=== PATIENT | female | born 1970 | race Hispanic/Latino ===

== ENCOUNTER 2017-01-06 09:07 | Emergency (ER) | payer OTHER ==
[~2017-01-06] VITALS: Ht 165.1 cm; Wt 121.1 kg
[~2017-01-06 09:07] MED LIST: ASPIRIN EC81 M1 PO; FIORICET 50-301 EACH PO; GLUCOPHAGE1000 M1 PO; LYRICA50 M1 PO; MEDROL4 M2 PO; NORVASC10 M1 PO; PROAIR HFA8.5 GM INH; ZITHROMAX250 M2 PO
[2017-01-06 09:51] LABS: ABSOLUTE BASOPHIL COUNT 0 /CUMM (0.0-0.2); ABSOLUTE EOSINOPHIL COUNT 0.1 /CUMM (0.0-0.7); ABSOLUTE GRANULOCYTE CT 5.6 /CUMM (1.4-6.5); ABSOLUTE LYMPH COUNT 1.4 /CUMM (1.2-3.4); ABSOLUTE MONOCYTE COUNT 0.6 /CUMM (0.10-0.60); BASOPHIL % 0.3 % (0.0-2.0); EOSINOPHIL % 1.6 % (0-5); GRANULOCYTE % 71.8 % (42.2-75.2); HEMATOCRIT 45.1 % (37-47); MEAN CORPUSCULAR HGB 29.9 PG (27.0-31.0); MEAN CORPUSCULAR HGB CONC 33.1 G/DL (33.0-37.0); MEAN CORPUSCULAR VOLUME 90.2 FL (81.0-99.0); MEAN PLATELET VOLUME 8.6 FL (7.4-10.4); PLATELET COUNT 276 /CUMM (130-400); RBC DISTRIBUTION WIDTH 12.9 % (11.5-14.5); WHITE BLOOD CELL COUNT 7.8 /CUMM (4.8-10.8)
[2017-01-06] MEDS ORDERED: BENTYL10 M1 PO ×2 (10:53→11:24)
[2017-01-06] MEDS ORDERED: ZOFRAN ODT4 M1 SL ×2 (10:54→11:24)
--- NOTE | 2017-01-06 10:54 | ED GI/GU/ABDOMINAL COMPLAINT ---
History of Present Illness General Chief Complaint: General Adult Stated Complaint: DIARRHEA, 3 DAYS Source: patient Exam Limitations: no limitations Vital Signs & Intake/Output Vital Signs & Intake/Output Vital Signs Date Time Temp Pulse Resp B/P B/P Pulse O2 O2 Flow FiO2 Mean Ox Delivery Rate 01/06 1130 97.0 90 20 150/80 99 Room Air 01/06 0912 96.6 96 16 173/79 99 Room Air Allergies Coded Allergies: No Known Allergies (06/07/16) Reconcile Medications Albuterol Sulfate (Proair Hfa) 8.5 GM HFA.AER.AD 2-4 PUF INH Q4-6 PRN PRN shortness of breath Amlodipine Besylate (Norvasc) 10 MG TABLET 1 TAB PO DAILY BP (Reported) Ciprofloxacin HCl (Cipro) 500 MG TABLET 1 TAB PO BID uti Dicyclomine Hydrochloride (Bentyl) 10 MG CAPSULE 1-2 CAP PO TID abd pain Ergocalciferol (Vitamin D2) (Vitamin D2) 50,000 UNIT CAPSULE 1 CAP PO QTUES VITAMIN SUPPORT (Reported) Gabapentin 300 MG CAPSULE 1 CAP PO QPM SLEEP (Reported) Lisinopril/Hydrochlorothiazide (Lisinopril-Hctz 20-12.5 MG Tab) 20 MG-12.5 MG TABLET 1 TAB PO DAILY HEART (Reported) Metformin HCl (Glucophage) 1,000 MG TABLET 1 TAB PO BID DIABETES (Reported) Ondansetron (Zofran Odt) 4 MG TAB.RAPDIS 1 TAB SL TID nausea Triage Note: 46 Y/O FEMALE C/O DIARRHEA X 3 DAYS; ALSO C/O DECREASED URINATION. DENIES N/V. REPORTS STOMACH "CRAMPING". AFEBRILE. Triage Nurses Notes Reviewed? yes ? n Is pt currently ? No Onset: Abrupt Duration: day(s):, constant, continues in ED Timing: recent history No Modifying Factors: none HPI: 46-year-old female comes into emergency room for further evaluation of diarrhea for the past couple days. Patient reports that she's had multiple bouts of loose stool. Denies any fever. Some subjective body aches. Denies any abdominal pain. Denies any blood in her stool. Denies any other associated symptoms. Nothing seems to make her symptoms better or worse. Past History Travel History Traveled to [place] past 21 day No Medical History Any Pertinent Medical History? 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 No Review of Systems Review of Systems Constitutional: Reports: no symptoms. EENTM: Reports: no symptoms. Respiratory: Reports: no symptoms. Cardiovascular: Reports: no symptoms. GI: Reports: see HPI. Genitourinary: Reports: no symptoms. Musculoskeletal: Reports: no symptoms. Skin: Reports: no symptoms. Neurological/Psychological: Reports: no symptoms. Hematologic/Endocrine: Reports: no symptoms. Immunologic/Allergic: Reports: no symptoms. All Other Systems: Reviewed and Negative Physical Exam Physical Exam General Appearance: well developed/nourished, no apparent distress, alert Head: atraumatic, normal appearance Eyes: Bilateral: normal appearance, EOMI. Ears, Nose, Throat, Mouth: hearing grossly normal, moist mucous membrane Neck: normal inspection, full range of motion Respiratory: normal breath sounds, no respiratory distress Cardiovascular: regular rate/rhythm Gastrointestinal: soft, tenderness (mild) Back: normal inspection Extremities: normal range of motion Neurologic/Psych: awake, alert, oriented x 3, normal gait, normal mood/affect Skin: intact, normal color Core Measures ACS in differential dx? No Severe Sepsis Present: No Septic Shock Present: No Progress Differential Diagnosis: appendicitis, biliary colic, bowel obstruction, colon cancer, cholecystitis, diverticulitis, gastritis, hepatitis, ovarian cyst, ovarian torsion, pancreatitis, PID/cervicitis, peptic ulcer, PUD/GERD, perforated viscous, SBO, threatened AB, UTI/pyelo Plan of Care: Orders Procedure Date/time Status Add-on Test (ER Only) 01/06 1216 Active Add-on Test (ER Only) 01/06 1120 Active CULTURE,URINE 01/06 1100 Active URINE 01/06 1100 Complete LACTIC ACID 01/06 0935 Complete COMPREHENSIVE METABOLIC PANEL 01/06 0935 Complete CBC WITHOUT DIFFERENTIAL 01/06 0935 Complete URINALYSIS 01/06 0912 Complete Laboratory Tests 01/06/17 1235: Lactic Acid Cancelled 01/06/17 1100: Urine Color YEL, Urine Clarity CLEAR, Urine pH 6.0, Ur Specific [place] 1.020, Urine Protein 100 H, Urine Ketones NEG, Urine Nitrite POS H, Urine Bilirubin NEG, Urine Urobilinogen 0.2, Ur Leukocyte Esterase NEG, Ur Microscopic SEDIMENT EXAMINED, Urine RBC 1-3, Urine WBC 10-15 H, Ur Epithelial Cells FEW, Urine Bacteria PACKD H, Urine Hemoglobin SMALL H, Urine Glucose >=1000 H, Urine Test NEGATIVE 01/06/17 0940: Anion Gap 11, Estimated GFR > 60, BUN/Creatinine Ratio 13.8, Glucose 302 H, Lactic Acid 1.2, Calcium 8.6, Total Bilirubin 0.6, AST 14, ALT 24, Alkaline Phosphatase 89, Total Protein 6.7, Albumin 3.3 L, Globulin 3.4, Albumin/ Globulin Ratio 1.0 L, CBC w Diff NO MAN DIFF REQ, RBC 5.00, MCV 90.2, MCH 29.9, RDW 12.9, MPV 8.6, Gran % 71.8, Lymphocytes % 18.4 L, Monocytes % 7.9, Eosinophils % 1.6, Basophils % 0.3, Absolute Granulocytes 5.6, Absolute Lymphocytes 1.4, Absolute Monocytes 0.6, Absolute Eosinophils 0.1, Absolute Basophils 0, PUBS MCHC 33.1 Microbiology 01/06 1100 URINE ROUT: Urine Culture - RECD 01/06 1052 STOOL: Clostridium difficile Toxin A & B - CAN Cancelled: Cancelled via OE: Per MD Decision Initial ED EKG: none Comments: 01/06/2017 1:49:11 PM Patient clinically looks well. Patient is in no apparent distress. Patient resting comfortably on stretcher. No white count. No acute abdomen on exam. Symptoms go along more with a viral illness. Patient was not able to provide a stool sample. CT scan was offered but patient declined. I do not feel it is necessary at this time and she agrees with my plan of care. Patient treated for UTI. Departure Departure Disposition: HOME OR SELF CARE Condition: Stable Clinical Impression Primary Impression: Diarrhea Secondary Impressions: Abdominal pain Referrals: DAY [facility] (PCP/Family) Additional Instructions: Take Bentyl as prescribed. Take Zofran ODT as needed. Drink plenty of fluids. Potassium repletion. Please go over all results of today's visit with your primary care doctor. Contact your primary care doctor to let them know you were here in the emergency room. There may be nonspecific findings which may not be related to your visit today here in the emergency room but may require further evaluation and chronic monitoring by your primary care doctor. If you had a laceration today the chance of foreign body always remains. You should follow-up with your primary care doctor for recheck in 3-5 days for a wound check. If you had an x-ray done there is a chance that a fracture could have been missed on initial read and you should follow-up with your primary care doctor for repeat x-rays if symptoms persist. If your blood pressure was elevated here in the emergency room please have rechecked by her primary care doctor within the next 48 hours by your primary care doctor. If you were prescribed a narcotic here in the emergency room or any type of controlled substances you're not allowed to drive while taking this medication or operate any type of heavy machinery. Narcotics can make you feel lightheaded dizziness nausea and can cause constipation. You may need to waste picker a stool softener. Thank you for choosing [facility] emergency room. Please return to the emergency room immediately if you have any other concerns worsening of symptoms. Departure Forms: Customer Survey General Discharge Information Prescriptions: Current Visit Scripts Dicyclomine Hydrochloride (Bentyl) 1-2 CAP PO TID #30 CAP Ondansetron (Zofran Odt) 1 TAB SL TID #10 TAB Ciprofloxacin HCl (Cipro) 1 TAB PO BID #14 TAB
[2017-01-06] MEDS ORDERED: GABAPENTIN300 M2 PO (11:03)
[2017-01-06] MEDS ORDERED: LISINOPRIL-HCT1 EACH PO (11:04)
[2017-01-06] MEDS ORDERED: VITAMIN D250000 UNIT PO (11:05)
[2017-01-06] MEDS ORDERED: CIPRO500 M1 PO (11:24)
[2017-01-06 11:30] VITALS: BP 150/80
== END 2017-01-06 11:31 ==
LOC: ERH 09:07
PROVIDERS: Emergency Medicine
DX: R19.7 Diarrhea, unspecified (principal)
CPT/HCPCS: 81001; 81025; 87045; 87086

== ENCOUNTER 2017-10-08 14:09 | Inpatient (IN) | payer OTHER ==
[~2017-10-08] VITALS: Ht 165.1 cm; Wt 117.9 kg
[~2017-10-08 14:09] MED LIST changes: +BENTYL10 M1 PO; +CIPRO500 M1 PO; +GABAPENTIN300 M2 PO; +LISINOPRIL-HCT1 EACH PO; +VITAMIN D250000 UNIT PO; +ZOFRAN ODT4 M1 SL
--- NOTE | 2017-10-08 14:13 | ED NEURO DEFICIT/STROKE ---
History of Present Illness General Chief Complaint: Neuro Symptoms/ Deficit Stated Complaint: BIBA NUMBNESS Source: patient, family, old records Exam Limitations: no limitations Vital Signs & Intake/Output Vital Signs & Intake/Output Vital Signs Date Time Temp Pulse Resp B/P B/P Pulse O2 O2 Flow FiO2 Mean Ox Delivery Rate 10/09 0600 98.2 68 20 169/83 96 10/09 0000 98.0 72 20 162/75 95 Room Air 10/08 1524 188/90 10/08 1506 78 20 207/93 99 Room Air 10/08 1422 98.0 88 20 183/84 98 Room Air ED Intake and Output 10/09 0000 10/08 1200 Intake Total 0 Output Total Balance 0 Intake, Oral 0 Patient 117.934 kg Weight Weight Reported by Patient Measurement Method Allergies Coded Allergies: No Known Allergies (06/07/16) Reconcile Medications Albuterol Sulfate (Proair Hfa) 8.5 GM HFA.AER.AD 2-4 PUF INH Q4-6 PRN PRN shortness of breath Amlodipine Besylate (Norvasc) 10 MG TABLET 1 TAB PO DAILY BP (Reported) Ciprofloxacin HCl (Cipro) 500 MG TABLET 1 TAB PO BID uti Dicyclomine Hydrochloride (Bentyl) 10 MG CAPSULE 1-2 CAP PO TID abd pain Ergocalciferol (Vitamin D2) (Vitamin D2) 50,000 UNIT CAPSULE 1 CAP PO QTUES VITAMIN SUPPORT (Reported) Gabapentin 300 MG CAPSULE 1 CAP PO QPM SLEEP (Reported) Lisinopril/Hydrochlorothiazide (Lisinopril-Hctz 20-12.5 MG Tab) 20 MG-12.5 MG TABLET 1 TAB PO DAILY HEART (Reported) Metformin HCl (Glucophage) 1,000 MG TABLET 1 TAB PO BID DIABETES (Reported) Ondansetron (Zofran Odt) 4 MG TAB.RAPDIS 1 TAB SL TID nausea Sitagliptin Phos/Metformin HCl (Janumet 50-1,000 MG Tablet) 50 MG-1,000 MG TABLET 50-1,000 MG PO DAILY DIABETES (Reported) Triage Nurses Notes Reviewed? yes HPI: 47F PMH HTN, HLD, T2DM, asthma presenting with right sided numbness since last night at 12:30am. Symptoms began abruptly after dinner and accompanied GI upset without diarrhea or vomiting, though nausea was present. She woke up this morning and symptoms persisted. Described as true numbness, "like getting novocaine", of her entire right arm and leg. She also has a frontal headache. Has a history of TIA in 2013 that presented as intractable dizziness. Past History Medical History Any Pertinent Medical History? 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 No Review of Systems Review of Systems Constitutional: Reports: no symptoms. EENTM: Reports: no symptoms. Respiratory: Reports: no symptoms. Cardiovascular: Reports: no symptoms. GI: Reports: no symptoms. Genitourinary: Reports: no symptoms. Musculoskeletal: Reports: no symptoms. Skin: Reports: no symptoms. Neurological/Psychological: Reports: no symptoms. Hematologic/Endocrine: Reports: no symptoms. Immunologic/Allergic: Reports: no symptoms. All Other Systems: Reviewed and Negative Physical Exam Physical Exam General Appearance: well developed/nourished, no apparent distress Head: atraumatic, normal appearance Eyes: Bilateral: normal appearance, PERRL, EOMI. Ears, Nose, Throat: normal ENT inspection, moist mucous membrane, hearing grossly normal Neck: normal inspection, supple, full range of motion Respiratory: normal breath sounds, no respiratory distress Cardiovascular: regular rate/rhythm Gastrointestinal: soft, non-tender Back: normal inspection, normal range of motion Extremities: normal range of motion Psychiatric: awake, alert, oriented x 3 Cranial Nerves: normal hearing, normal speech, PERRL, Right facial droop, NORMAL GAG REFLEX, NO TONGUE DEVIATION Coordination/Gait: normal finger to nose Motor/Sensory: RUE and RLE decreased sensation throughout, RUE/RLE 4/5 strength Reflexes: 2+: knee (R), knee (L). Skin: intact, normal color, warm/dry Core Measures CVA/TIA Diagnosis: Yes NIH Stroke Scale NIH Stroke Scale Response Value Level of Consciousness alert 0 LOC Questions answers both correctly 0 LOC Commands obeys both correctly 0 Best Gaze normal 0 Visual Nguyen no visual loss 0 Facial Paresis minor 1 Motor Arm - Left no drift 0 Motor Arm - Right drift 1 Motor Leg - Left no drift 0 Motor Leg - Right drift 1 Limb Ataxia no ataxia 0 Sensory partial loss 1 Best Language no aphasia 0 Dysarthria normal articulation 0 Extinction and Inattention no neglect 0 Total 4 Date Last Known Well: 10/08/17 Time Last Known Well: 29 Symptom Start Date: 10/08/17 Symptom Start Time: 003 Reason tPA not ordered Medical Contraindication (Out of window) Swallow Evaluation Pass Swallow eval date 10/08/17 Swallow eval time 1500 Sepsis Present: No Sepsis Focused Exam Completed? No Progress Differential Diagnosis: acute glaucoma, Brown's Palsy, drug intoxication, electrolyte imbalance, encephalitis, hypoglycemia, intracranial Hem., intracranial mass/tumor, meningitis, migraine ISSA, seizure disorder, stroke, subarachnoid Hem., vertebrobasilar insuff. Plan of Care: Orders Procedure Date/time Status CBC WITHOUT DIFFERENTIAL 10/10 0600 Active BASIC ELECTROLYTES PLUS BUN&CR 10/10 0600 Active Heart Healthy Diet 10/09 L Complete Heart Healthy Diet 10/09 D Active Nothing by Mouth 10/09 B Complete Change service to 10/09 0753 Active Vital Signs 10/09 0704 Active Teach/Educate 10/09 0704 Active Pain Treatment and Response 10/09 0704 Active Nutritional Intake, Monitor 10/09 0704 Active Isolation 10/09 0704 Active Intake & Output 10/09 0704 Active Patient Care Conference 10/09 0704 Active Activity/Ambulation 10/09 0704 Active LIPID PANEL 10/09 0600 Complete GLYCOSYLATED HGB 10/09 0600 Complete CBC WITHOUT DIFFERENTIAL 10/09 0600 Complete BASIC ELECTROLYTES PLUS BUN&CR 10/09 0600 Complete Teach/Educate 10/09 0441 Active Pain Treatment and Response 10/09 0441 Active Nutritional Intake, Monitor 10/09 0441 Active Isolation 10/09 0441 Active Patient Care Conference 10/09 0441 Active [id number] DOPPLER 10/09 UNK Active PT EVAL LOW COMPLEX 20 MIN 10/09 UNK Complete Gait Training 10/09 UNK Complete House Staff 10/09 UNK Active Lab Add-on Test 10/09 UNK Active OT EVAL MOD COMPLEX 45 MIN 10/09 UNK Complete FingerStick- Glucose 10/09 UNK Active Heart Healthy Diet 10/08 D Complete Pathway - chart 10/08 1632 Active Patient Data 10/08 1632 Active ED Holding Orders 10/08 1554 Active Admit to inpatient 10/08 1554 Active Patient Data 10/08 1554 Active Vital Signs 10/08 1554 Active Code Status 10/08 1554 Active TROPONIN LEVEL 10/08 1427 Complete PARTIAL THROMBOPLASTIN TIME 10/08 1427 Complete PROTHROMBIN TIME 10/08 1427 Complete COMPREHENSIVE METABOLIC PANEL 10/08 1427 Complete CBC WITHOUT DIFFERENTIAL 10/08 1427 Complete NIH Stroke Scale 10/08 1422 Complete Intake & Output 10/08 1420 Active EKG 10/08 1410 Active SWALLOW EVALUATION 10/08 UNK Active PT Evaluate & Treat 10/08 UNK Active House Staff 10/08 UNK Active Occupational Tx Eval & Treat 10/08 UNK Active VTE Mechanical Prophylaxis 10/08 UNK Active Vital Signs 10/08 UNK Complete Telemetry/Forge Hand 10/08 UNK Active NIH Stroke Scale 10/08 UNK Active Intake & Output 10/08 UNK Complete FingerStick- Glucose 10/08 UNK Active Activity/Ambulation 10/08 UNK Active ECHOCARDIOGRAM 10/08 UNK Active Current Medications Sig/Miki Start time Last Medication Dose Stop Time Status Admin Ergocalciferol 50,000 IU QTUES 10/10 0700 AC (Drisdol) Atorvastatin Calcium 80 MG 1700 10/09 1700 AC (Lipitor) Insulin Aspart 0 TIDAC/HS 10/09 1700 AC (NovoLOG) Acetaminophen 650 MG Q6-PRN PRN 10/09 1230 AC (Tylenol) Aspirin 81 MG DAILY 10/09 1100 AC 10/09 (Aspirin) 1207 Enoxaparin Sodium 40 MG DAILY 10/09 1000 AC 10/09 (Lovenox) 1031 Gabapentin 300 MG QPM 10/08 2200 AC 10/08 (Neurontin) 2219 Laboratory Tests 10/09/17 0435: Anion Gap 8, Estimated GFR > 60, BUN/Creatinine Ratio 14.0, Hemoglobin A1c 12.1 H, Triglycerides 146, Cholesterol 158, LDL Cholesterol, Calc 85, HDL Cholesterol 44, Cholesterol/HDL Ratio 4, CBC w Diff NO MAN DIFF REQ, RBC 4.77, MCV 88.4, MCH 28.0, MCHC 31.7 L, RDW 12.5, MPV 9.1, Gran % 58.4, Lymphocytes % 31.3, Monocytes % 6.7, Eosinophils % 3.1, Basophils % 0.5, Absolute Granulocytes 5.2, Absolute Lymphocytes 2.8, Absolute Monocytes 0.6, Absolute Eosinophils 0.3, Absolute Basophils 0 10/08/17 1518: Anion Gap 9, Estimated GFR > 60, BUN/Creatinine Ratio 15.0, Glucose 291 H, Calcium 8.8, Total Bilirubin 0.3, AST 26, ALT 27, Alkaline Phosphatase 97, Troponin I 0.04, Total Protein 6.0 L, Albumin 2.9 L, Globulin 3.1, Albumin/ Globulin Ratio 0.9 L, PT 11.2, INR 1.07, APTT 31, CBC w Diff NO MAN DIFF REQ, RBC 4.86, MCV 87.2, MCH 28.4, MCHC 32.6 L, RDW 12.9, MPV 8.7, Gran % 67.4, Lymphocytes % 22.8, Monocytes % 6.8, Eosinophils % 2.7, Basophils % 0.3, Absolute Granulocytes 6.8 H, Absolute Lymphocytes 2.3, Absolute Monocytes 0.7 H, Absolute Eosinophils 0.3, Absolute Basophils 0 Diagnostic Imaging: Viewed by Me: CT Scan. Discussed w/RAD: CT Scan. Radiology Impression: PATIENT: SHREYAS PARIS PRESENT AGE: 47 PATIENT ACCOUNT NO: [id number] : 70 LOCATION: [facility] ORDERING PHYSICIAN: Rosa M Tejada MD SERVICE DATE: 10/08/17 EXAM TYPE : CAT - CT HEAD WO IV CONTRAST EXAMINATION: CT HEAD WITHOUT CONTRAST CLINICAL INFORMATION: 47-year-old woman with right-sided weakness/numbness. COMPARISON: None TECHNIQUE: Contiguous axial imaging was performed from the skull base to vertex without intravenous administration of contrast. DLP: 631 mGy-cm FINDINGS: There is no evidence of acute intracranial hemorrhage or territorial infarction. No abnormal mass effect or midline shift is seen. [place] to white matter differentiation is well preserved. No extra-axial fluid collections are identified. The ventricles are normal in size. There is no abnormal attenuation within the brain parenchyma. The osseous structures and soft tissues are normal. The mastoid air cells and visualized portions of the paranasal sinuses are well aerated. IMPRESSION: No acute intracranial pathology. Findings were discussed with Dr. Tejada at 2:47 pm. 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 Initial ED EKG: NSR, no ST T wave changes Departure Departure Disposition: STILL A PATIENT Condition: Stable Clinical Impression Primary Impression: Acute CVA (cerebrovascular accident) Referrals: Sri Leyva APRN (PCP/Family) Departure Forms: Customer Survey General Discharge Information Admission Note Spoke With: Sedrick JOHNSON,Meghan Tavera Documentation of Exam: Documentation of any treatments & extenuating circumstances including Concerns Regarding Discharge (functional status, medication knowledge or non-compliance, living conditions, etc.) that warrant an admission rather than observation: ACUTE STROKE WITH RIGHT SIDED WEAKNESS AND FACIAL DROOP, UNABLE TO AMBULATE OR MOVE RIGHT ARM AGAINST RESISTANCE, WILL BE ADMITTED FOR TELEMETRY MONITORING, MRI/MRA, NEUROLOGY FOLLOW UP, ECHOCARDIOGRAM, PHYSICAL THERAPY.
--- NOTE | 2017-10-08 14:50 | CT SCAN REPORT ---
EXAMINATION: CT HEAD WITHOUT CONTRAST CLINICAL INFORMATION: 47-year-old woman with right-sided weakness/numbness. COMPARISON: None TECHNIQUE: Contiguous axial imaging was performed from the skull base to vertex without intravenous administration of contrast. DLP: 631 mGy-cm FINDINGS: There is no evidence of acute intracranial hemorrhage or territorial infarction. No abnormal mass effect or midline shift is seen. [place] to white matter differentiation is well preserved. No extra-axial fluid collections are identified. The ventricles are normal in size. There is no abnormal attenuation within the brain parenchyma. The osseous structures and soft tissues are normal. The mastoid air cells and visualized portions of the paranasal sinuses are well aerated. IMPRESSION: No acute intracranial pathology. Findings were discussed with Dr. Tejada at 2:47 pm.
[2017-10-08] MEDS ORDERED: JANUMET 50-1,01 EACH PO (15:11)
--- NOTE | 2017-10-08 15:23 | Cons- Neurology ---
General Information and HPI Consulting Request Date of Consult: 10/08/17 Requested By: Dr. Tejada Reason for Consult: Right side weakness and numbness Source of Information: patient, family Exam Limitations: no limitations History of Present Illness: 47/F with DM II of 12 years duration, HTN and 2 prior TIAs became weak and numb on the entire right side, face, arm and leg suddenly last night. She tells me that intially couldn't move the right arm against gravity. Improved today, came in at families insistence. No associated headache, chest pain, dyspnea but she does complain of epigastric pain at this time. Allergies/Medications Allergies: Coded Allergies: No Known Allergies (06/07/16) Home Med List: Albuterol Sulfate (Proair Hfa) 8.5 GM HFA.AER.AD 2-4 PUF INH Q4-6 PRN PRN shortness of breath Amlodipine Besylate (Norvasc) 10 MG TABLET 1 TAB PO DAILY BP (Reported) Ciprofloxacin HCl (Cipro) 500 MG TABLET 1 TAB PO BID uti Dicyclomine Hydrochloride (Bentyl) 10 MG CAPSULE 1-2 CAP PO TID abd pain Ergocalciferol (Vitamin D2) (Vitamin D2) 50,000 UNIT CAPSULE 1 CAP PO QTUES VITAMIN SUPPORT (Reported) Gabapentin 300 MG CAPSULE 1 CAP PO QPM SLEEP (Reported) Lisinopril/Hydrochlorothiazide (Lisinopril-Hctz 20-12.5 MG Tab) 20 MG-12.5 MG TABLET 1 TAB PO DAILY HEART (Reported) Metformin HCl (Glucophage) 1,000 MG TABLET 1 TAB PO BID DIABETES (Reported) Ondansetron (Zofran Odt) 4 MG TAB.RAPDIS 1 TAB SL TID nausea Current Medications: Current Medications Sig/Miki Start time Last Medication Dose Route Stop Time Status Admin Aspirin 0 .STK-MED ONE 10/08 1509 DC PO Aspirin 81 MG ONCE ONE 10/08 1500 DC 10/08 PO 10/08 1501 1506 Review of Systems Review of Systems: Other than epigastric distress and symptoms noted in HPI no complaints on 12 pt review. 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 Surgical History Surgical History: non-contributory Psychosocial History Smoking Status: Unknown If Ever Smoked ETOH Use: denies use Exam & Diagnostic Data Vital Signs and I&O Vital Signs Date Time Temp Pulse Resp B/P B/P Pulse O2 O2 Flow FiO2 Mean Ox Delivery Rate 10/08 1506 78 20 207/93 99 Room Air 10/08 1422 98.0 88 20 183/84 98 Room Air Intake & Output 10/08 1600 10/08 0800 10/08 0000 Intake Total 0 Output Total Balance 0 Intake, Oral 0 Patient 260 lb Weight Weight Reported by Patient Measurement Method Physical Exam: Overweight, no apparent distress no carotid bruits, heart sounds distant, no edema, periph pulses intact alert, oriented, no language errors, mild dysarthria VFF EOMI, P4ERRL right lower facial weakness right facial and body sensation reduced to touch and pin Right 4/5 power arm and leg tone OK DTRs absent, toes silent coordination impaired right, normal left gait testing deferred Imaging/Other Studies: CT head: There is no evidence of acute intracranial hemorrhage or territorial infarction. No abnormal mass effect or midline shift is seen. [place] to white matter differentiation is well preserved. No extra-axial fluid collections are identified. The ventricles are normal in size. There is no abnormal attenuation within the brain parenchyma. The osseous structures and soft tissues are normal. The mastoid air cells and visualized portions of the paranasal sinuses are well aerated. IMPRESSION: No acute intracranial pathology. Assessment/Plan Assessment: CVA improving sub-cortical, spares language, probably lacunar along internal capsule out of time window for TPA or endovascular treatment was not on ASA or statin Recommendations: ASA 81 mg ec po qd atorvastatin 40 mg qd cover glucoses, keep < 200 follow BP, Rx acutely if >210/110 continue hme BP meds telemetry MRI brain (Monday) Echocardiogram carotid dopplers fasting lipid profile stroke education PT/OT/ST consults OK to be OOB-chair Consult Acknowledgment - Thank you for your consult request.
[2017-10-08 15:30] LABS: ABSOLUTE BASOPHIL COUNT 0 /CUMM (0.0-0.2); ABSOLUTE EOSINOPHIL COUNT 0.3 /CUMM (0.0-0.7); ABSOLUTE GRANULOCYTE CT 6.8 /CUMM (1.4-6.5); ABSOLUTE LYMPH COUNT 2.3 /CUMM (1.2-3.4); ABSOLUTE MONOCYTE COUNT 0.7 /CUMM (0.10-0.60); BASOPHIL % 0.3 % (0.0-2.0); EOSINOPHIL % 2.7 % (0-5); GRANULOCYTE % 67.4 % (42.2-75.2); HEMATOCRIT 42.4 % (37-47); MEAN CORPUSCULAR HGB 28.4 PG (27.0-31.0); MEAN CORPUSCULAR HGB CONC 32.6 G/DL (33.0-37.0); MEAN CORPUSCULAR VOLUME 87.2 FL (81.0-99.0); MEAN PLATELET VOLUME 8.7 FL (7.4-10.4); PLATELET COUNT 252 /CUMM (130-400); RBC DISTRIBUTION WIDTH 12.9 % (11.5-14.5); RED BLOOD CELL CT 4.86 /CUMM (4.20-5.40)
[2017-10-08 15:35] LABS: PT 11.2 SEC (9.4-12.5); PTT 31 SEC (25-37)
--- NOTE | 2017-10-08 16:11 | History & Physical ---
SebsdJonathanrahul 10/08/17 1604: General Information and HPI MD Statement: I have seen and personally examined SHREYAS PARIS and documented this H&P. The patient is a 47 year old F who presented with a patient stated chief complaint of [numbness]. Source of Information: patient, family Exam Limitations: no limitations History of Present Illness: This is a 47-year-old female with past medical history of hypertension, hyperlipidemia, type 2 diabetes mellitus, prior TIAs came in with chief complain of right-sided numbness since last night at 12:30 AM with right-sided numbness since last night at 12:30 AM, her symptoms began abruptly after dinner and accompanied GI upset without diarrhea or vomiting with some nausea.However she went to bed and woke up today morning with similar symptoms. She described the numbness as like getting Novocain and her entire right arm and leg were numb. She also complained of a frontal headache. Usually she could not move her right arm against gravity, however the weakness has improved today. She has a past medical history of TIA in 2012 that presented as intractable dizziness. 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 Cardiovascular: Denies: chest pain, edema, orthopena. Respiratory: Denies: cough, hemoptysis. GI: Denies: abdominal pain, bloating, constipation, diarrhea. Genitourinary: Denies: discharge, dysuria, frequency. Musculoskeletal: Reports: muscle pain. Denies: back pain, gout, joint pain. Skin: Reports: no symptoms. Neurological/Psychological: Reports: numbness, unable to move lower ext, unable to move upper ext, weakness. Hematologic/Endocrine: Reports: no symptoms. Immunologic/Allergic: Reports: no symptoms. Exam & Diagnostic Data Last 24 Hrs of Vital Signs/I&O Vital Signs Date Time Temp Pulse Resp B/P B/P Pulse O2 O2 Flow FiO2 Mean Ox Delivery Rate 10/11 1450 98.8 73 20 158/74 96 Room Air 10/11 0903 94 Room Air 10/11 0842 66 168/80 10/11 0842 66 168/80 10/11 0800 Room Air 10/11 0704 98.9 66 20 168/80 95 Room Air 10/11 0000 Room Air 10/10 2207 98.6 67 20 138/80 98 10/10 2126 97 Room Air 10/10 1800 66 150/66 Intake & Output 10/11 1600 10/11 0800 10/11 0000 Intake Total 600 120 440 Output Total 400 Balance 600 -280 440 Intake, IV 40 Intake, Oral 600 120 400 Number 0 Bowel Movements Output, Urine 400 Physical Exam General Appearance Alert, Oriented X3, Cooperative, Mild Distress Skin No Rashes, No Breakdown Skin Temp/Moisture Exam: Cool/Dry Sepsis Skin Exam (color): Normal for Ethnicity HEENT Atraumatic, PERRLA, EOMI Neck Supple, No JVD Cardiovascular Normal S1, Normal S2 Lungs Clear to Auscultation, Normal Air Movement Abdomen Normal Bowel Sounds, Soft, No Tenderness Neurological Normal Tone, rigth sided upper and lower extremtiy weakness, facial droop noted, right sided paresis , unable to blow cheek, asymetric smile, reduced sensatino on right side upper and lower extremtiy Extremities No Clubbing, No Cyanosis, No Edema, Normal Pulses Vascular Normal Pulses Last 24 Hrs of Labs/Kai: .. Assessment/Plan Assessment: This is a 47-year-old female with past medical history of hypertension, hyperlipidemia, type 2 diabetes mellitus, prior TIAs came in with chief complain of right-sided numbness since last night at 12:30 AM with right-sided numbness since last night at 12:30 AM, her symptoms began abruptly after dinner and accompanied GI upset without diarrhea or vomiting with some nausea. However she went to bed and woke up today morning with similar symptoms.She described the numbness as if - like getting Novocaine and her entire right arm and leg were numb. She also complained of a frontal headache. Usually she could not move her right arm against gravity, however the weakness has improved today. She has a past medical history of TIA in 2013 that presented as intractable dizziness. Tmax of 98.0, pulse of 78-88, blood pressure off 207/93, with last value 188/90, 99% on room air. No white count, H/H of 13.8/42.4, platelet of 252. sodium of 138, potassium of 4.2, chloride of 104, BUN/creatinine 9/0.6, glucose of 291. CT head showed no acute intracranial pathology, no evidence of hemorrhage or infarct, normal ventricular size. Problem list along with assessment and plan Suspected CVA * Admit the patient to cardiac telemetry floor for continuous cardiac monitoring and neuro checks. * Continue neuro checks * Continue to monitor vitals, intake and output * Aspirin/statin * Aspirin 81 mg once daily and statin 40 mg once daily. * Continue to follow MRI brain for Monday morning. * Follow carotid Dopplers * Echocardiogram * PT/OT consult * Ambulation okay to get out of bed to chair. * She passed swallow evalve bedside, therefore we will start her on liquid diet and po meds, * please allow permissive hypertension, ct to hold antihypertensive meds, restart if BP > 220 systolic for first 24 hours, after that can reevlauate. dvt px full code pp As Ranked By This Provider Problem List: 1. Acute CVA (cerebrovascular accident) 2. Bronchitis 3. Accelerated hypertension 4. Diarrhea 5. Abdominal pain Core Measures/Misc (05/28) Acute Coronary Syndrome ACS Diagnosis: No Congestive Heart Failure Congestive Heart Failure Diagnosis No Cerebrovascular Accident CVA/TIA Diagnosis: Yes NIH Stroke Scale: Total 8 Date Last Known Well: 10/08/17 Time Last Known Well: 0 Symptom Start Date: 10/08/17 Symptom Start Time: 29 Reason tPA not ordered Medication Refused Swallow Evaluation Pass Current/Past Hx AFib/AFlutter No No Antithrombotic d/t Medication Refused VTE (View Protocol) VTE Risk Factors Age>40 No Mechanical VTE Prophylaxis d/t Other No VTE Pharm Prophylaxis d/t Other Sepsis (View protocol) Sepsis Present: No Resident Review Statement Resident Statement: admitted by resident Meghan Dubose 10/08/17 5138: General Information and HPI Allergies/Medications Home Med list Albuterol Sulfate (Proair Hfa) 8.5 GM HFA.AER.AD 2-4 PUF INH Q4-6 PRN PRN shortness of breath Amlodipine Besylate (Norvasc) 10 MG TABLET 1 TAB PO DAILY BP (Reported) Aspirin (Aspirin*) 81 MG TAB.CHEW 81 MG PO DAILY HEART HEALTH Atorvastatin Calcium (Lipitor) 40 MG TABLET 2 TAB PO DAILY stroke take 2 tabs for 2 weeks then 1 tab daily Dicyclomine Hydrochloride (Bentyl) 10 MG CAPSULE 1-2 CAP PO TID abd pain Ergocalciferol (Vitamin D2) (Vitamin D2) 50,000 UNIT CAPSULE 1 CAP PO QTUES VITAMIN SUPPORT (Reported) Gabapentin 300 MG CAPSULE 1 CAP PO QPM SLEEP (Reported) Lisinopril/Hydrochlorothiazide (Lisinopril-Hctz 20-12.5 MG Tab) 20 MG-12.5 MG TABLET 1 TAB PO DAILY HEART (Reported) Metformin HCl (Glucophage) 1,000 MG TABLET 1 TAB PO BID DIABETES (Reported) Ondansetron (Zofran Odt) 4 MG TAB.RAPDIS 1 TAB SL TID nausea Sitagliptin Phos/Metformin HCl (Janumet 50-1,000 MG Tablet) 50 MG-1,000 MG TABLET 50-1,000 MG PO DAILY DIABETES (Reported) Tramadol HCl (Ultram) 50 MG TABLET 1 TAB PO Q6P PRN HEADACHES Attending MD Review Statement Attending Statement Attending MD Statement: examined this patient, discuss w/resident/PA/RADIO CONTROL CRANE OPERATOR, agreed w/resident/PA/RADIO CONTROL CRANE OPERATOR, discussed with family, reviewed EMR data (avail) Attending Assessment/Plan: 47 yr F with PMH of active smoker since age 26 yrs of age( 1/2 - 1 PPD), HTN on lisinopril - HCTZ, HLD, DM on janumet, TIAs times 2 in 2012 for which she was put on aspirin and which she stopped by herself after one year presented with chief complain of right-sided numbness and tingling since last night at 12:30 AM .However she went to bed and woke up today morning with similar symptoms but felt intially the symptoms were better. Later in morning when she was talking over the phone her rt arm became weak and was unable to do the talk on the phone and this was noticed by her daughet and the pt was brought to the ER for further eval. Pt according to family is non complaint with her diet and her last Aic was around 18, Her previous TIA was related to very high BP. Stroke / TIA with rt side weakness and rt facial droop. Given aspirin in ER. pt out of tPa window. seen by neuro. appreciate their input. will start on high dose statin, will get lipid profile, Aic and will get echo , MRI brain, Carotid ultrasound. Will allow for permissive hypertension. DM- will try to control her blood sugars and will get endo consult. Nicotine dependence- counselled to quit smoking , start on 14mg nicotine patch. dw pt and family at bedside the care plan.
[2017-10-09] VITALS: BP 162/75
[2017-10-09 05:23] LABS: ABSOLUTE BASOPHIL COUNT 0 /CUMM (0.0-0.2); ABSOLUTE EOSINOPHIL COUNT 0.3 /CUMM (0.0-0.7); ABSOLUTE GRANULOCYTE CT 5.2 /CUMM (1.4-6.5); ABSOLUTE LYMPH COUNT 2.8 /CUMM (1.2-3.4); ABSOLUTE MONOCYTE COUNT 0.6 /CUMM (0.10-0.60); BASOPHIL % 0.5 % (0.0-2.0); EOSINOPHIL % 3.1 % (0-5); GRANULOCYTE % 58.4 % (42.2-75.2); HEMATOCRIT 42.1 % (37-47); MEAN CORPUSCULAR HGB CONC 31.7 G/DL (33.0-37.0); MEAN CORPUSCULAR VOLUME 88.4 FL (81.0-99.0); MEAN PLATELET VOLUME 9.1 FL (7.4-10.4); PLATELET COUNT 252 /CUMM (130-400); RBC DISTRIBUTION WIDTH 12.5 % (11.5-14.5); RED BLOOD CELL CT 4.77 /CUMM (4.20-5.40)
[2017-10-09 06:00] VITALS: BP 169/83
--- NOTE | 2017-10-09 08:13 | PN- Housestaff ---
Stefani Kwok 10/09/17 0813: Subjective Follow-up For: Right upper and lower extremity weakness with right-sided facial droop/CVA Hypertension Diabetes mellitus type 2 Subjective: Patient was seen and examined this morning. She was lying comfortably on bed but still feeling weak to her hold right upper and lower extremity. She also has mild right-sided facial droop as well. She denied any chest pain, urinary or bowel complaints. Her MRI brain, carotid Doppler is still pending. Patient is working with physical therapy and she passed formal swallow evaluation. Review of Systems Constitutional: Denies: diaphoresis, fever, malaise. Cardiovascular: Denies: chest pain, edema, orthopena. Respiratory: Denies: hemoptysis, orthopnea, short of breath. Musculoskeletal: Reports: muscle stiffness. Neurological/Psychological: Reports: see HPI. Objective Last 24 Hrs of Vital Signs/I&O Vital Signs Date Time Temp Pulse Resp B/P B/P Pulse O2 O2 Flow FiO2 Mean Ox Delivery Rate 10/09 0600 98.2 68 20 169/83 96 10/09 0000 98.0 72 20 162/75 95 Room Air 10/08 1524 188/90 10/08 1506 78 20 207/93 99 Room Air 10/08 1422 98.0 88 20 183/84 98 Room Air Intake & Output 10/09 1600 10/09 0800 10/09 0000 Intake Total 210 Output Total Balance 210 Intake, IV 10 Intake, Oral 200 Patient 260 lb Weight Weight Reported by Patient Measurement Method Physical Exam General Appearance: Alert, Oriented X3, Cooperative, No Acute Distress Cardiovascular: Regular Rate, Normal S1, Normal S2, No Murmurs Lungs: Normal Air Movement Abdomen: Soft, No Tenderness Neurological: Normal Speech, 4/5 STRENGTH IN RIGHT UPPER AND LOWER EXTREMITY LEFT 5/5 Extremities: No Clubbing, No Cyanosis, No Edema Current Medications: Current Medications Sig/Miki Start time Last Medication Dose Route Stop Time Status Admin Acetaminophen 650 MG Q6-PRN PRN 10/09 1230 AC PO Aspirin 0 .STK-MED ONE 10/09 1211 DC PO Aspirin 81 MG DAILY 10/09 1100 AC 10/09 PO 1207 Aspirin 0 .STK-MED ONE 10/08 1509 DC PO Aspirin 81 MG ONCE ONE 10/08 1500 DC 10/08 PO 10/08 1501 1506 Atorvastatin Calcium 80 MG 1700 10/09 1700 AC PO Enoxaparin Sodium 40 MG DAILY 10/09 1000 AC 10/09 [place] 1031 Ergocalciferol 50,000 IU QTUES 10/10 0700 AC PO Gabapentin 0 .STK-MED ONE 10/088 DC PO Gabapentin 300 MG QPM 10/08 2200 AC 10/08 PO 2219 Influenza Virus 0.5 ML ONCE ONE 10/09 0645 DC Vaccine IM 10/09 0646 Insulin Human Regular 0 Q6 10/08 1800 AC 10/09 [place] 1207 Last 24 Hrs of Lab/Kai Results Last 24 Hrs of Labs/Mics: Laboratory Tests 10/09/17 0435: Anion Gap 8, Estimated GFR > 60, BUN/Creatinine Ratio 14.0, Hemoglobin A1c 12.1 H, Triglycerides 146, Cholesterol 158, LDL Cholesterol, Calc 85, HDL Cholesterol 44, Cholesterol/HDL Ratio 4, CBC w Diff NO MAN DIFF REQ, RBC 4.77, MCV 88.4, MCH 28.0, MCHC 31.7 L, RDW 12.5, MPV 9.1, Gran % 58.4, Lymphocytes % 31.3, Monocytes % 6.7, Eosinophils % 3.1, Basophils % 0.5, Absolute Granulocytes 5.2, Absolute Lymphocytes 2.8, Absolute Monocytes 0.6, Absolute Eosinophils 0.3, Absolute Basophils 0 10/08/17 1518: Anion Gap 9, Estimated GFR > 60, BUN/Creatinine Ratio 15.0, Glucose 291 H, Calcium 8.8, Total Bilirubin 0.3, AST 26, ALT 27, Alkaline Phosphatase 97, Troponin I 0.04, Total Protein 6.0 L, Albumin 2.9 L, Globulin 3.1, Albumin/ Globulin Ratio 0.9 L, PT 11.2, INR 1.07, APTT 31, CBC w Diff NO MAN DIFF REQ, RBC 4.86, MCV 87.2, MCH 28.4, MCHC 32.6 L, RDW 12.9, MPV 8.7, Gran % 67.4, Lymphocytes % 22.8, Monocytes % 6.8, Eosinophils % 2.7, Basophils % 0.3, Absolute Granulocytes 6.8 H, Absolute Lymphocytes 2.3, Absolute Monocytes 0.7 H, Absolute Eosinophils 0.3, Absolute Basophils 0 Assessment/Plan Assessment: Patient is 47 year old morbidly obese female with past medical history significant for hypertension, dyslipidemia, type 2 diabetes, prior TIAs came in with right-sided numbness/weakness concerning for acute ischemic stroke. Patient was admitted on telemetric floor and we will address following issues. Problem #1 right-sided upper and lower extremity weakness with right-sided facial droop concerning for acute CVA 1. Head CT was done which does not show any evidence of acute infarct. Her MRI is still pending and we will look for acute infarct. 2. She was started on aspirin and statins. 3. PT/OT consultation will be requested and appreciated 4. Patient was evaluated by neurology. 5. Her carotid Dopplers are still pending and depending on the results we will further decide about any active intervention if needed. 6. She passed a swallow evaluation and we will continue regular diet Problem #2 history of hypertension We will held all her home antihypertensive and will allow permissive hypertension for at least 24 hours and we will resume her medications. Problem #3 history of diabetes We will hold her home dose of Janumet and metformin and we will continue her insulin according to sliding scale. Patient is full code Pharmacological DVT prophylaxis Problem List: 1. Acute CVA (cerebrovascular accident) Pain Ratin Pain Location: na Pain Goal: Remain pain free Pain Plan: tylenol Tomorrow's Labs & Rationales: cbc and bep Amy JOHNSON,Darin 10/09/17 1524: Attending MD Review Statement Attending Statement Attending MD Statement: examined this patient, discuss w/resident/PA/HEALTH AND FITNESS PROFESSOR, agreed w/resident/PA/HEALTH AND FITNESS PROFESSOR, discussed with family, reviewed EMR data (avail), discussed with nursing, discussed with case mgmt, amended to note Attending Assessment/Plan: Patient seen and examined. Resting comfortably and not in any acute distress. Denies chest pain or shortness of breath. Denies palpitations. No issues overnight. Still complains of right-sided weakness. On examination power is 3/ 5 right upper and lower extremities. Power is 5/5 left upper extremity. Sensation is intact globally. Head CT as well as MRI are both negative for any evidence of an acute intracranial process including stroke. Symptomatology remains consistent with a stroke despite the negative imaging findings. Recommendations: -Continue patient on aspirin and statin that was started during this admission. -Follow-up echocardiogram and carotid Doppler. -Telemetry monitoring overnight to rule out atrial fibrillation. -If negative she may be discharged with outpatient cardiac monitoring to rule out paroxysmal atrial fibrillation. -She has been cleared for discharge home by physical therapy service however the occupational therapy service is recommending acute rehab. She will be reevaluated tomorrow after further telemetry monitoring.
--- NOTE | 2017-10-09 12:06 | MRI REPORT ---
EXAMINATION: MR BRAIN WITHOUT CONTRAST CLINICAL INFORMATION: Rule out stroke. Right-sided numbness. COMPARISON: Head CT from 09/30/2017. TECHNIQUE: Multiplanar, multisequence imaging of the brain was performed without contrast. FINDINGS: No diffusion abnormalities are identified to suggest an acute or subacute infarct. The ventricles are normal in size. No mass effect or midline shift is seen. No brain parenchymal signal abnormality is noted. No extra-axial fluid collections are seen. The brainstem and cerebellum are normal. The gradient refocused acquisition demonstrates no pathologic magnetic susceptibility artifact to indicate underlying acute or chronic blood products. The craniovertebral junction, marrow signal, and midline structures are normal. The major intracranial flow voids at the level of the [place] are preserved. The dural venous sinus flow voids are maintained. The mastoid air cells and paranasal sinuses are well aerated. IMPRESSION: Normal MRI of the brain. No acute process.
--- NOTE | 2017-10-09 14:53 | ULTRASOUND REPORT ---
EXAMINATION: DUPLEX BILATERAL CAROTID ULTRASOUND CLINICAL INFORMATION: Stroke COMPARISON: None. TECHNIQUE: Duplex bilateral carotid US was performed using real-time ultrasound and Doppler techniques (integrating B-mode 2D vascular images, Doppler spectral analysis and color flow Doppler imaging). These techniques were utilized to interrogate the extracranial carotid and vertebral arteries bilaterally. The degree of stenosis is based off criteria similar to NASCET. FINDINGS: 1. On the right: Plaque is present at the carotid bifurcation but velocity measurements proximal ICA are normal and do not suggest a stenosis of greater than 50% diameter reduction in the right proximal ICA velocities in the mid ICA are slightly elevated which could be due to tortuosity. The right external carotid artery shows no significant stenosis. The vertebral artery is patent demonstrating antegrade flow. 2. On the left: Plaque is present at the carotid bifurcation but velocity measurements are normal and do not suggest a stenosis of greater than 50% diameter reduction in the left ICA. The left external carotid artery shows no significant stenosis. The vertebral artery is patent demonstrating antegrade flow. IMPRESSION: Plaque is present in the internal carotid arteries but velocity measurements are normal and there is no evidence to suggest a hemodynamically significant stenosis of greater than 50% diameter reduction in the proximal internal carotid arteries.
[2017-10-09 15:52] VITALS: BP 220/89
--- NOTE | 2017-10-09 16:53 | PN- Neurology ---
Subjective Subjective: still reports numbness and weakness right arm and leg Review of Systems: no headache or visual complaints Objective Vital Signs and I&Os Vital Signs Date Time Temp Pulse Resp B/P B/P Pulse O2 O2 Flow FiO2 Mean Ox Delivery Rate 10/09 1552 98.5 82 20 220/89 94 Room Air 10/09 1514 98.5 82 19 220/89 94 Room Air 10/09 0600 98.2 68 20 169/83 96 10/09 0000 98.0 72 20 162/75 95 Room Air Intake & Output 10/09 1600 10/09 0800 10/09 0000 10/08 1600 10/08 0800 10/08 0000 Intake Total 410 210 0 Output Total Balance 410 210 0 Intake, IV 10 10 Intake, Oral 400 200 0 Patient 260 lb 260 lb Weight Weight Reported by Patient Reported by Patient Measurement Method Physical Exam: alert. 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) and mild drift DTRx equal no babinski Current Medications: Current Medications Sig/Miki Start time Last Medication Dose Route Stop Time Status Admin Acetaminophen 0 .STK-MED ONE 10/09 1452 DC PO Acetaminophen 650 MG Q6-PRN PRN 10/09 1230 AC 10/09 PO 1449 Aspirin 0 .STK-MED ONE 10/09 1211 DC PO Aspirin 81 MG DAILY 10/09 1100 AC 10/09 PO 1207 Atorvastatin Calcium 80 MG 1700 10/09 1700 AC PO Enoxaparin Sodium 40 MG DAILY 10/09 1000 AC 10/09 SC 1031 Ergocalciferol 50,000 IU QTUES 10/10 0700 AC PO Gabapentin 0 .STK-MED ONE 10/08 2218 DC PO Gabapentin 300 MG QPM 10/08 2200 AC 10/08 PO 2219 Influenza Virus 0.5 ML ONCE ONE 10/09 0645 DC Vaccine IM 10/09 0646 Insulin Aspart 0 TIDAC/HS 10/09 1700 AC SC Insulin Human Regular 0 Q6 10/08 1800 DC 10/09 SC 1207 Results Last 24 Hours of Lab Results: Laboratory Tests 10/09 0435 Chemistry Sodium (137 - 145 mmol/L) 139 Potassium (3.5 - 5.1 mmol/L) 3.8 Chloride (98 - 107 mmol/L) 104 Carbon Dioxide (22 - 30 mmol/L) 27 Anion Gap (5 - 16) 8 BUN (7 - 17 mg/dL) 7 Creatinine (0.5 - 1.0 mg/dL) 0.5 Estimated GFR (>60 ml/min) > 60 BUN/Creatinine Ratio (7 - 25 %) 14.0 Hemoglobin A1c (4.2 - 5.8 %) 12.1 H Triglycerides (<150 mg/dL) 146 Cholesterol (<200 MG/DL) 158 LDL Cholesterol, Calc (65 - 129 mg/dL) 85 HDL Cholesterol (40 - 60 mg/dL) 44 Cholesterol/HDL Ratio (0.00 - 4.23 %) 4 Hematology CBC w Diff NO MAN DIFF REQ WBC (4.8 - 10.8 /CUMM) 9.0 RBC (4.20 - 5.40 /CUMM) 4.77 Hgb (12.0 - 16.0 G/DL) 13.3 Hct (37 - 47 %) 42.1 MCV (81.0 - 99.0 FL) 88.4 MCH (27.0 - 31.0 PG) 28.0 MCHC (33.0 - 37.0 G/DL) 31.7 L RDW (11.5 - 14.5 %) 12.5 Plt Count (130 - 400 /CUMM) 252 MPV (7.4 - 10.4 FL) 9.1 Gran % (42.2 - 75.2 %) 58.4 Lymphocytes % (20.5 - 51.1 %) 31.3 Monocytes % (1.7 - 9.3 %) 6.7 Eosinophils % (0 - 5 %) 3.1 Basophils % (0.0 - 2.0 %) 0.5 Absolute Granulocytes (1.4 - 6.5 /CUMM) 5.2 Absolute Lymphocytes (1.2 - 3.4 /CUMM) 2.8 Absolute Monocytes (0.10 - 0.60 /CUMM) 0.6 Absolute Eosinophils (0.0 - 0.7 /CUMM) 0.3 Absolute Basophils (0.0 - 0.2 /CUMM) 0 MRI normal Dopplers; Plaque is present in the internal carotid arteries but velocity measurements are normal and there is no evidence to suggest a hemodynamically significant stenosis of greater than 50% diameter reduction in the proximal internal carotid arteries. Assessment/Plan Assessment: Stroke syndrome, right weakness, no evident infarction on MRI, may represent vasospasm/hypertensive urgency or small lacunar event not seen by MRI Plan: ASA and statin begin bringing BP down gradually PT/OT
--- NOTE | 2017-10-09 18:28 | Discharge Summary ---
Visit Information Visit Dates Admission Date: 10/08/17 Discharge Date: 10/12/17 Hospital Course Course Attending Physician: Darin Reyes MD Primary Care Physician: Sri Leyva APRN Hospital Course: Patient is 47 year old morbidly obese female with past medical history significant for hypertension, dyslipidemia, type 2 diabetes, prior TIAs came in with right-sided numbness/weakness concerning for acute ischemic stroke. Patient was admitted on telemetric floor and we will address following issues. Problem #1 right-sided upper and lower extremity weakness with right-sided facial droop concerning for acute CVA 1. Head CT was done which does not show any evidence of acute infarct. Carotid Doppler ultrasound Her Doppler were also does not show any evidence of hemodynamically significant stenosis. MRI was also negative. Due to her continued right-sided upper and lower extremity weakness with new onset headaches there was a concern of spinal cord compression however MRI of the cervical spine showed no evidence of severe spinal or foraminal stenosis noted at any level. Patient was discharged home on as needed tramadol. Aspirin and statins were continued patient was advised to follow-up with the PCP and neurology as an outpatient. Her symptoms were significant for right upper and lower extremities weakness and some facial droop which subsequently improved. Her symptoms stayed for more than 24 hours. Neurology consultation was placed and appreciated. Given though her symptoms does not resolve within 24 hours and her imaging studies were negative for stroke but at this point we would treat her for acute stroke syndrome. Other differentials could be complicated migraine, hypertensive urgency with focal neurological deficit or conversion disorder. Patient was instructed to compliant with her medications. Problem #2 history of hypertension She had significant hypertension on admission and we allowed permissive hypertension but slowly restarted her home medication and we will discharge her on her usual home medications. Problem #3 history of diabetes Her oral hypoglycemics were held and we kept her on insulin according to sliding scale and she would resume her home medications on discharge Patient is full code Pharmacological DVT prophylaxis Allergies: Coded Allergies: No Known Allergies (06/07/16) Significant Procedures: SERVICE DATE: 10/09/17- EXAM TYPE: MRI - MRI-HEAD W/O GUALBERTO EXAMINATION: MR BRAIN WITHOUT CONTRAST CLINICAL INFORMATION: Rule out stroke. Right-sided numbness. COMPARISON: Head CT from 09/30/2017. TECHNIQUE: Multiplanar, multisequence imaging of the brain was performed without contrast. FINDINGS: No diffusion abnormalities are identified to suggest an acute or subacute infarct. The ventricles are normal in size. No mass effect or midline shift is seen. No brain parenchymal signal abnormality is noted. No extra-axial fluid collections are seen. The brainstem and cerebellum are normal. The gradient refocused acquisition demonstrates no pathologic magnetic susceptibility artifact to indicate underlying acute or chronic blood products. The craniovertebral junction, marrow signal, and midline structures are normal. The major intracranial flow voids at the level of the [place] are preserved. The dural venous sinus flow voids are maintained. The mastoid air cells and paranasal sinuses are well aerated. IMPRESSION: Normal MRI of the brain. No acute process. Pertinent Lab Results: SERVICE DATE: 10/09/17- EXAM TYPE: US - [id number] DOPPLER EXAMINATION: DUPLEX BILATERAL CAROTID ULTRASOUND CLINICAL INFORMATION: Stroke COMPARISON: None. TECHNIQUE: Duplex bilateral carotid US was performed using real-time ultrasound and Doppler techniques (integrating B-mode 2D vascular images, Doppler spectral analysis and color flow Doppler imaging). These techniques were utilized to interrogate the extracranial carotid and vertebral arteries bilaterally. The degree of stenosis is based off criteria similar to NASCET. FINDINGS: 1. On the right: Plaque is present at the carotid bifurcation but velocity measurements proximal ICA are normal and do not suggest a stenosis of greater than 50% diameter reduction in the right proximal ICA velocities in the mid ICA are slightly elevated which could be due to tortuosity. The right external carotid artery shows no significant stenosis. The vertebral artery is patent demonstrating antegrade flow. 2. On the left: Plaque is present at the carotid bifurcation but velocity measurements are normal and do not suggest a stenosis of greater than 50% diameter reduction in the left ICA. The left external carotid artery shows no significant stenosis. The vertebral artery is patent demonstrating antegrade flow. IMPRESSION: Plaque is present in the internal carotid arteries but velocity measurements are normal and there is no evidence to suggest a hemodynamically significant stenosis of greater than 50% diameter reduction in the proximal internal carotid arteries. Disposition Summary Disposition Principal Diagnosis: CVA Additional Diagnosis: Hypertension Discharge Disposition: home health services Discharge Instructions Medications at Discharge Discharge Medications: Stop taking the following medications: Ciprofloxacin HCl (Cipro) 500 MG TABLET ORAL TWICE DAILY Qty = 14 Continue taking these medications: Metformin HCl (Glucophage) 1,000 MG TABLET 1 Tablet ORAL TWICE DAILY Comments: NOT GIVEN IN HOSPITAL Amlodipine Besylate (Norvasc) 10 MG TABLET 1 Tablet ORAL DAILY Comments: Last Taken: 10/12/17 Time: 9AM Albuterol Sulfate (Proair Hfa) 8.5 GM HFA.AER.AD 2-4 Puff Inhale through mouth EVERY 4-6 HOURS NEEDED as needed for shortness of breath Qty = 1 Comments: NOT GIVEN IN HOSPITAL Gabapentin (Gabapentin) 300 MG CAPSULE 1 Capsule ORAL Every night Qty = 30 Comments: Last Taken: 10/11/17 Time: 9PM Lisinopril/Hydrochlorothiazide (Lisinopril-Hctz 20-12.5 MG Tab) 20 MG-12.5 MG TABLET 1 Tablet ORAL DAILY Qty = 30 Comments: Last Taken: 10/12/17 Time: 9AM Ergocalciferol (Vitamin D2) (Vitamin D2) 50,000 UNIT CAPSULE 1 Capsule ORAL EVERY MONDAY Qty = 4 Comments: NOT GIVEN IN HOSPITAL Dicyclomine Hydrochloride (Bentyl) 10 MG CAPSULE 1-2 Capsule ORAL THREE TIMES DAILY Qty = 30 Comments: NOT GIVEN IN HOSPITAL Ondansetron (Zofran Odt) 4 MG TAB.RAPDIS 1 Tablet SUBLINGUAL THREE TIMES DAILY Qty = 10 Comments: NOT GIVEN IN HOSPITAL Sitagliptin Phos/Metformin HCl (Janumet 50-1,000 MG Tablet) 50 MG-1,000 MG TABLET 50-1,000 Milligram ORAL DAILY Comments: NOT GIVEN IN HOSPITAL Start taking the following new medications: Tramadol HCl (Ultram) 50 MG TABLET 1 Tablet ORAL EVERY SIX HOURS NEEDED as needed for HEADACHES Qty = 10 No Refills Comments: Last Taken: 10/12/17 Time: 9:30AM Aspirin (Aspirin*) 81 MG TAB.CHEW 81 Milligram ORAL DAILY Qty = 30 No Refills Comments: Last Taken: 10/12/17 Time: 9AM Atorvastatin Calcium (Lipitor) 40 MG TABLET 2 Tablet ORAL DAILY Qty = 60 No Refills Instructions: take 2 tabs for 2 weeks then 1 tab daily Comments: Last Taken: 10/11/17 Time: 5PM
[2017-10-09 19:48] VITALS: BP 170/77
[2017-10-09 22:18] VITALS: BP 180/88
[2017-10-10 05:35] VITALS: BP 142/52
--- NOTE | 2017-10-10 08:00 | PN- Housestaff ---
Stefani Kwok 10/10/17 0800: Subjective Follow-up For: Cerebrovascular accident/stroke Subjective: Patient was seen and examined this morning. She was lying comfortably on bed with minimal headache. Her blood pressure was on higher side yesterday evening and eventually came down within acceptable range with oral dose of amlodipine. She remained hemodynamically stable and her symptoms are improved this morning. Review of Systems Constitutional: Denies: diaphoresis, fever. Respiratory: Denies: cough, hemoptysis. Gastrointestinal: Denies: constipation, distention. Genitourinary: Denies: dysuria, hematuria. Musculoskeletal: Denies: gout, joint swelling. Skin: Denies: cysts, dryness. Objective Last 24 Hrs of Vital Signs/I&O Vital Signs Date Time Temp Pulse Resp B/P B/P Pulse O2 O2 Flow FiO2 Mean Ox Delivery Rate 10/10 1402 98.9 80 20 180/70 96 Room Air 10/10 0926 72 180/90 10/10 0915 98.8 72 20 180/90 96 Room Air 10/10 0800 Room Air 10/10 0535 99.3 66 20 142/52 93 10/09 2218 98.6 69 20 180/88 98 Room Air 10/09 2201 Room Air 10/09 2049 98.8 72 19 207/82 95 Room Air 10/09 1948 74 170/77 10/09 1948 77 170/77 10/09 1552 98.5 82 20 220/89 94 Room Air 10/09 1514 98.5 82 19 220/89 94 Room Air Intake & Output 10/10 1600 10/10 0800 10/10 0000 Intake Total 50 210 Output Total Balance 50 210 Intake, IV 0 10 Intake, Oral 50 200 Number 0 Bowel Movements Physical Exam General Appearance: Alert, Oriented X3, Cooperative, No Acute Distress Cardiovascular: Regular Rate, Normal S1, Normal S2 Lungs: Normal Air Movement Abdomen: Soft, No Tenderness Neurological: Normal Speech, Strength at 5/5 X4 Ext Extremities: No Clubbing, No Cyanosis, No Edema Current Medications: Current Medications Sig/Miki Start time Last Medication Dose Route Stop Time Status Admin Acetaminophen 0 .STK-MED ONE 10/09 1452 DC PO Acetaminophen 650 MG Q6-PRN PRN 10/09 1230 AC 10/10 PO 0926 Albuterol Sulfate 3 ML Q4P PRN 10/09 2214 AC 10/09 INH 2155 Albuterol Sulfate 2 PUF Q4-6 PRN PRN 10/09 2214 AC INH Amlodipine Besylate 0 .STK-MED ONE 10/09 1948 DC PO Amlodipine Besylate 0 .STK-MED ONE 10/09 1947 DC PO Amlodipine Besylate 10 MG DAILY 10/09 1825 AC 10/10 PO 0926 Aspirin 81 MG DAILY 10/09 1100 AC 10/10 PO 0926 Atorvastatin Calcium 80 MG 1700 10/09 1700 AC 10/09 PO 1751 Enoxaparin Sodium 40 MG DAILY 10/09 1000 AC 10/10 SC 0927 Ergocalciferol 50,000 IU QTUES 10/10 0700 AC 10/10 PO 0516 Gabapentin 0 .STK-MED ONE 10/09 2022 DC PO Gabapentin 300 MG QPM 10/08 220 AC 10/09 PO 2119 Insulin Aspart 0 TIDAC/HS 10/09 1700 AC 10/10 SC 1210 Last 24 Hrs of Lab/Kai Results Last 24 Hrs of Labs/Mics: Laboratory Tests 10/10/17 0623: Anion Gap 10, Estimated GFR > 60, BUN/Creatinine Ratio 16.0, CBC w Diff NO MAN DIFF REQ, RBC 4.55, MCV 87.8, MCH 28.6, MCHC 32.6 L, RDW 12.5, MPV 9.7, Gran % 65.8, Lymphocytes % 23.6, Monocytes % 6.9, Eosinophils % 3.1, Basophils % 0.6, Absolute Granulocytes 5.1, Absolute Lymphocytes 1.8, Absolute Monocytes 0.5, Absolute Eosinophils 0.2, Absolute Basophils 0 Assessment/Plan Assessment: Patient is 47 year old morbidly obese female with past medical history significant for hypertension, dyslipidemia, type 2 diabetes, prior TIAs came in with right-sided numbness/weakness concerning for acute ischemic stroke. Patient was admitted on telemetric floor and we will address following issues. Currently she is doing fine and stable to go home with home OT/PT pending echocardiogram once it's done and normal. Problem #1 right-sided upper and lower extremity weakness with right-sided facial droop concerning for acute CVA differentials will be but differentials could be hypertensive urgency with localize neurological symptoms or complicated migraine or conversion disorder 1. Head CT was done which does not show any evidence of acute infarct. Had MRI did not show any acute infarct are still her symptoms were significant and for more than 24 hours and we will treat her like acute stroke syndrome. 2. She was started on aspirin and statins. 3. PT/OT consultation will be requested and appreciated 4. Patient was evaluated by neurology. 5. Her carotid Dopplers also did not show any hemodynamically significant stenosis 6. She passed a swallow evaluation and we will continue regular diet. 7. She mentioned that around 2012 when she had an episode of TIA taken care at [facility] [place] where some abnormal imaging study was found which she is not definitive what that was. Health Center was called and requested for records. Problem #2 history of hypertension We will held all her home antihypertensive and will allow permissive hypertension for at least 24 hours and we will resume her medications. Problem #3 history of diabetes We will hold her home dose of Janumet and metformin and we will continue her insulin according to sliding scale. Patient is full code Pharmacological DVT prophylaxis Problem List: 1. Acute CVA (cerebrovascular accident) Pain Ratin Pain Location: Headache Pain Goal: Remain pain free Pain Plan: Tylenol Tomorrow's Labs & Rationales: None Leo Rodas MD 10/10/171945: Attending MD Review Statement Attending Statement Attending MD Statement: examined this patient, discuss w/resident/PA/STUDIO MANAGER, agreed w/resident/PA/STUDIO MANAGER, reviewed EMR data (avail), discussed with nursing, discussed with case mgmt, reviewed images, amended to note Attending Assessment/Plan: The patient was seen and discussed with house staff. Today does have headache (? posterior neck area) and persistent RUE/RLE weakness (4/5). No facial droop. As above, head MRI & CT, carotids normal. She mentioned being diagnosed with "TIA" by [facility] in [place] (?2013) and was told she had an abnormal study? No infarction noted on MRI suggests against CVA. Migraine is still a possibility (although she did not have headache at time of admission). Concern regarding persistent right sided weakness. No facial droop noted on my exam. With posterior neck ache may consider cervical spinal issue if she has persistent weakness. May be worthwhile to do cervical MRI. Will discuss with Neurology.
[2017-10-10 08:06] LABS: ABSOLUTE BASOPHIL COUNT 0 /CUMM (0.0-0.2); ABSOLUTE EOSINOPHIL COUNT 0.2 /CUMM (0.0-0.7); ABSOLUTE GRANULOCYTE CT 5.1 /CUMM (1.4-6.5); ABSOLUTE LYMPH COUNT 1.8 /CUMM (1.2-3.4); ABSOLUTE MONOCYTE COUNT 0.5 /CUMM (0.10-0.60); BASOPHIL % 0.6 % (0.0-2.0); EOSINOPHIL % 3.1 % (0-5); GRANULOCYTE % 65.8 % (42.2-75.2); HEMATOCRIT 39.9 % (37-47); MEAN CORPUSCULAR HGB 28.6 PG (27.0-31.0); MEAN CORPUSCULAR HGB CONC 32.6 G/DL (33.0-37.0); MEAN CORPUSCULAR VOLUME 87.8 FL (81.0-99.0); MEAN PLATELET VOLUME 9.7 FL (7.4-10.4); PLATELET COUNT 217 /CUMM (130-400); RBC DISTRIBUTION WIDTH 12.5 % (11.5-14.5); RED BLOOD CELL CT 4.55 /CUMM (4.20-5.40); WHITE BLOOD CELL COUNT 7.8 /CUMM (4.8-10.8)
[2017-10-10 09:15] VITALS: BP 180/90
[2017-10-10] MEDS ORDERED: LIPITOR40 M1 PO (09:37)
[2017-10-10] MEDS ORDERED: ASPIRIN81 M4 PO (09:37)
--- NOTE | 2017-10-10 09:42 | Patient Discharge Instructions ---
Discharge Instructions General Discharge Information You were seen/treated for: CVA/TIA HYPERTENSION Special Instructions: Please follow-up with your primary care physician in one week of discharge Please follow-up with neurology in 1-2 weeks of discharge Please take medications as prescribed Diet Recommended Diet: Diabetic, Heart Healthy Activity Additional ACTIVITY Info: as tolerated Acute Coronary Syndrome Inclusion Criteria At DC or during hospital stay patient has or had the following: ACS DIAGNOSIS No Discharge Core Measures Meds if any: Prescribed or Continued at Discharge Meds if any: NOT Prescribed or Continued at Discharge Congestive Heart Failure Inclusion Criteria At DC or during hospital stay patient has or had the following: CHF DIAGNOSIS No Discharge Core Measures Meds if any: Prescribed or Continued at Discharge Meds if any: NOT Prescribed or Continued at Discharge Cerebrovascular accident Inclusion Criteria At DC or during hospital stay patient has or had the following: CVA/TIA Diagnosis Yes Discharge Core Measures Meds if any: Prescribed or Continued at Discharge Statin (required if LDL =>70) Yes Anticoagulant Yes Meds if any: NOT Prescribed or Continued at Discharge Venous thromboembolism Inclusion Criteria VTE Diagnosis No VTE Type NONE VTE Confirmed by (Test) NONE Discharge Core Measures - Per Current guidelines, there needs to be overlap - treatment for the first 5 days of Warfarin therapy. - If discharged on Warfarin prior to 5 days of - overlap therapy, the patient will need to be - assessed for post discharge needs including - *Post discharge parental anticoagulation - *Warfarin and/or parental anticoagulation education - *Follow up date to check INR post discharge At least 5 days overlap therapy as Inpatient No Meds if any: Prescribed or Continued at Discharge Note: Overlap Therapy is Warfarin and Anticoagulant Meds if any: NOT Prescribed or Continued at Discharge
[2017-10-10 14:02] VITALS: BP 180/70
[2017-10-10 18:00] VITALS: BP 150/66
[2017-10-10 22:07] VITALS: BP 138/80
[2017-10-11 07:04] VITALS: BP 168/80
--- NOTE | 2017-10-11 07:36 | PN- Housestaff ---
Gris Centeno 10/11/17 0736: Subjective Follow-up For: Cerebrovascular accident/stroke Tele-Events Since Last Visit: Normal sinus rhythm no overnight events on the classroom monitor Subjective: Patient is seen in's and this morning, reports severe headaches with neck pain . Still has right upper and lower extremity weakness with right-sided facial droop. Vital stable, blood pressure within normal range, no overnight events. Review of Systems Constitutional: Denies: chills, fever, malaise. EENTM: Denies: blurred vision, visual changes, eye pain, eye drainage. Cardiovascular: Denies: chest pain, edema, orthopena. Respiratory: Denies: hemoptysis, orthopnea, short of breath. Gastrointestinal: Denies: abdominal pain, constipation, diarrhea. Genitourinary: Denies: dysuria, frequency, hesitation. Musculoskeletal: Denies: back pain, joint pain, joint swelling. Objective Last 24 Hrs of Vital Signs/I&O Vital Signs Date Time Temp Pulse Resp B/P B/P Pulse O2 O2 Flow FiO2 Mean Ox Delivery Rate 10/11 0903 94 Room Air 10/11 0842 66 168/80 10/11 0842 66 168/80 10/11 0800 Room Air 10/11 0704 98.9 66 20 168/80 95 Room Air 10/11 0000 Room Air 10/10 2207 98.6 67 20 138/80 98 10/10 2126 97 Room Air 10/10 1800 66 150/66 10/10 1600 66 150/70 10/10 1402 98.9 80 20 180/70 96 Room Air Intake & Output 10/11 1600 10/11 0800 10/11 0000 Intake Total 120 440 Output Total 400 Balance -280 440 Intake, IV 40 Intake, Oral 120 400 Number 0 Bowel Movements Output, Urine 400 Physical Exam General Appearance: Alert, Oriented X3 Skin: No Rashes, No Breakdown Skin Temp/Moisture Exam: Warm/Dry HEENT: Atraumatic, PERRLA Neck: Supple, No JVD Lymphatic: Axillary nl Cardiovascular: Regular Rate, Normal S1, No Murmurs Lungs: Clear to Auscultation, Normal Air Movement Abdomen: Normal Bowel Sounds, Soft, No Tenderness Neurological: Normal Gait, Normal Speech, Strength at 5/5 X4 Ext, Normal Tone Extremities: No Clubbing, No Cyanosis, No Edema Assessment/Plan Assessment: Patient is 47 year old morbidly obese female with past medical history significant for hypertension, dyslipidemia, type 2 diabetes, prior TIAs came in with right-sided numbness/weakness concerning for acute ischemic stroke. Patient was admitted on telemetric floor and we will address following issues. Currently she is doing fine and stable to go home with home OT/PT pending echocardiogram once it's done and normal. Problem #1 right-sided upper and lower extremity weakness with right-sided facial droop concerning, now patient has severe headaches with neck pain. * Acute CVA has been ruled out with negative head MRI results. * Will do MRI cervical spine without gadolinium to rule out nerve/spinal cord compression. * Start her on tramadol as needed for severe headaches. * Continue aspirin and statins. * Continue physical physical therapy. * We'll discontinue telemetry monitoring 2. She was started on aspirin and statins. 3. PT/OT consultation will be requested and appreciated 4. Patient was evaluated by neurology. 5. Her carotid Dopplers also did not show any hemodynamically significant stenosis 6. She passed a swallow evaluation and we will continue regular diet. 7. She mentioned that around 2012 when she had an episode of TIA taken care at [facility] [place] where some abnormal imaging study was found which she is not definitive what that was. Health Center was called and requested for records. Problem #2 history of hypertension We will held all her home antihypertensive and will allow permissive hypertension for at least 24 hours and we will resume her medications. Problem #3 history of diabetes We will hold her home dose of Janumet and metformin and we will continue her insulin according to sliding scale. Patient is full code Pharmacological DVT prophylaxis Problem List: 1. Acute CVA (cerebrovascular accident) Pain Ratin Pain Location: HEADACHES Pain Goal: Pain 4 or less Pain Plan: PRN TRAMADOL AND TYLENOL Tomorrow's Labs & Rationales: Stable labs no need to repeat any labs tomorrow. Darin Reyes MD 10/11/17 1157: Attending Review Statement Attending Statement Attending Statement: examined this patient, discuss w/resident/PA/WOOL SORTER, agreed w/resident/PA/WOOL SORTER, reviewed EMR data (avail), discussed with nursing, discussed with case mgmt, amended to note Attending Assessment/Plan: Patient seen and examined. Complaining of headache. She denied any headache prior to presentation. She reports headache started yesterday it improved temporarily but has now recurred. She denies any visual changes. Denies any nausea vomiting. She also complains of right-sided neck pain. She did complain of tingling sensation radiating down her right upper extremity this morning that has also resolved. On examination she continues to have right upper and lower extremity weakness however it is improved compared to presentation. Her power is 4/5 in her right upper and lower extremity. She has no facial asymmetry now or when I first evaluated her. Recommendations: -Patient reported good response to tramadol for her headache yesterday. Recommend initiation of another dose today. -Her persistent right-sided weakness in the setting of a negative MRI was read as concern for spinal cord involvement particularly with report of neck pain. Will discuss this further with the neurology service and consider obtaining an MRI of the cervical spine once available. -Continue physical therapy as tolerated. Continue to mobilize patient. -Discontinue telemetry monitoring.
--- NOTE | 2017-10-11 09:46 | ECHOCARDIOGRAM REPORT ---
SHREYAS PARIS Age: 47 : 1970 Gender: F Exam Date: 10/10/2017 16:26 Exam Location: 1 [address] Ht (in): 65 Wt (lb): 260 BSA: 2.39 BP: 150 / 70 Ordering Physician: Yovana Crowder MD Referring Physician: Yovana Crowder MD Technologist: Brittanie Britton [facility] Room Number: [id number] Indications: STROKE Rhythm: Technical Quality: Fair FINDINGS Left Ventricle Left ventricular cavity size normal. Left ventricular wall thickness moderately increased. No obvious regional wall motion abnormalities. Left ventricular ejection fraction is estimated at > 55 %. Right Ventricle Normal right ventricular size and function. Right Atrium Normal right atrial size. Left Atrium Normal left atrial size. Mitral Valve Mild mitral annular calcification. No mitral stenosis. Mild mitral regurgitation. Aortic Valve Trileaflet aortic valve. No aortic stenosis. Tricuspid Valve Structurally normal tricuspid valve. Trace to mild tricuspid regurgitation. Unable to estimate the right ventricular systolic pressure. Pulmonic Valve Pulmonic valve not well visualized, grossly normal. Pericardium No pericardial effusion. Great Vessels Normal size aortic root. CONCLUSIONS Left ventricular cavity size normal. Left ventricular wall thickness moderately increased. No obvious regional wall motion abnormalities. Left ventricular ejection fraction is estimated at > 55 %. Normal right ventricular size and function. Unable to estimate the right ventricular systolic pressure. No pericardial effusion. Baron Wooten M.D. (Electronically Signed) Final Date: 11 October 2017 09:45 MEASUREMENTS (Male / Female) Normal Values 2D ECHO LV Diastolic Diameter PLAX 4.3 cm 4.2 - 5.9 / 3.9 - 5.3 cm LV Systolic Diameter PLAX 2.4 cm 2.1 - 4.0 cm LV Fractional Shortening PLAX 44.2 % 25 - 46 % LV Ejection Fraction 2D Teich 75.7 % IVS Diastolic Thickness 2.2 cm LVPW Diastolic Thickness 1.4 cm LV Relative Wall Thickness 0.8 RV Internal Dim ED PLAX 2.9 cm 1.9 - 3.8 cm LVOT Diameter 2.0 cm Aortic Root Diameter 2.7 cm LA Systolic Diameter LX 4.2 cm 3.0 - 4.0 / 2.7 - 3.8 cm LA Volume 50.0 cm 18 - 58 / 22 - 52 cm Ascending Aorta Diameter 3.1 cm DOPPLER AV Peak Velocity 170.0 cm/s AV Peak Gradient 11.6 mmHg AV Mean Velocity 124.0 cm/s AV Mean Gradient 7.0 mmHg AV Velocity Time Integral 37.6 cm LVOT Peak Velocity 133.0 cm/s LVOT Peak Gradient 7.1 mmHg LVOT Mean Velocity 98.5 cm/s LVOT Mean Gradient 4.0 mmHg LVOT Velocity Time Integral 31.5 cm LVOT Stroke Volume 99.0 cm AV Area Cont Eq vti 2.6 cm AV Area Cont Eq pk 2.5 cm MV Peak Velocity 123.0 cm/s MV Peak Gradient 6.1 mmHg MV Mean Velocity 79.1 cm/s MV Mean Gradient 3.0 mmHg Mitral E Point Velocity 109.0 cm/s Mitral A Point Velocity 113.0 cm/s Mitral E to A Ratio 1.0 MV PHT Velocity 119.0 cm/s MV Deceleration Story 445.0 cm/s MV Pressure Half Time 80.2 ms MV Area PHT 2.7 cm MV Deceleration Time 264.0 ms TR Peak Velocity 135.0 cm/s TR Peak Gradient 7.3 mmHg Right Atrial Pressure 5.0 mmHg Pulmonary Artery Systolic Pressu 12.3 mmHg Right Ventricular Systolic Press 12.3 mmHg PV Peak Velocity 116.0 cm/s PV Peak Gradient 5.4 mmHg PV Mean Velocity 76.8 cm/s PV Mean Gradient 3.0 mmHg PV Velocity Time Integral 24.6 cm LV E' Lateral Velocity 5.2 cm/s Mitral E to LV E' Lateral Ratio 21.1 LV E' Septal Velocity 5.6 cm/s Mitral E to LV E' Septal Ratio 19.6
[2017-10-11 14:50] VITALS: BP 158/74
[2017-10-11 22:16] VITALS: BP 174/70
[2017-10-12 06:38] VITALS: BP 132/66
--- NOTE | 2017-10-12 08:41 | MRI REPORT ---
EXAMINATION: MR CERVICAL SPINE WITHOUT CONTRAST CLINICAL INFORMATION: 47-year-old woman with severe headaches, neck pain, and right upper extremity weakness. COMPARISON: None TECHNIQUE: MRI of the cervical spine without contrast was obtained using routine sequences. FINDINGS: Images are degraded by patient motion. Alignment remains anatomic. Vertebral bodies are normal in height. Mild degenerative endplate marrow signal and associated contour changes are visible at C6-C7. Intervertebral disc volumes are preserved. The craniocervical junction is normal in appearance. No convincing focal cord signal abnormality is seen at any level. C2-C3, C3-C4: The disc contours are normal, and the canal and foramina are widely patent. C4-C5: Disc osteophyte complex is slightly eccentric to the right and effaces the ventral CSF space, leading to mild canal stenosis. Uncovertebral spurring more than facet arthrosis leads to mild right foraminal narrowing. C5-C6: Disc osteophyte complex is eccentric to the right, effaces the ventral CSF space, and leads to mild canal stenosis. The foramina are nonstenotic. C6-C7: There is a minimal disc bulge. The canal and foramina are widely patent. C7-T1: The disc contour is normal, and the canal and foramina are widely patent. IMPRESSION: Motion degraded exam demonstrates mild multilevel cervical spondylosis. No severe canal or foraminal stenosis is noted at any level.
[2017-10-12 09:25] VITALS: BP 152/78
[2017-10-12 09:26] VITALS: BP 152/78
[2017-10-12] MEDS ORDERED: ULTRAM50 M1 PO ×3 (09:48→10:38)
--- NOTE | 2017-10-12 10:42 | PN- Housestaff ---
Gris Centeno 10/12/17 1042: Subjective Follow-up For: Cerebrovascular accident/stroke Tele-Events Since Last Visit: Normal sinus rhythm no overnight events on the laboratory monitor Subjective: Patient seen and examined this morning , seems better than yesterday , headaches are better with tramadol .still has some right-sided upper and lower extremity weakness MRI cervical spine rule out any nerve/spinal cord compression( no evidence of severe spinal or foraminal stenosis noted at any level). Review of Systems Constitutional: Denies: chills, diaphoresis. EENTM: Denies: blurred vision, double vision, visual changes. Cardiovascular: Denies: chest pain, edema, orthopena. Respiratory: Denies: cough, orthopnea. Gastrointestinal: Denies: bloating, diarrhea. Genitourinary: Denies: dysuria, frequency. Objective Last 24 Hrs of Vital Signs/I&O Vital Signs Date Time Temp Pulse Resp B/P B/P Pulse O2 O2 Flow FiO2 Mean Ox Delivery Rate 10/12 1027 96 Room Air 10/12 0926 76 152/78 10/12 0925 76 152/78 10/12 0925 76 152/78 10/12 0800 Room Air 10/12 0638 98.7 56 20 132/66 95 Room Air 10/12 0000 Room Air 10/11 2216 98.3 74 20 174/70 96 Room Air 10/11 1745 Room Air Intake & Output 10/12 1600 10/12 0800 10/12 0000 Intake Total 350 350 Output Total Balance 350 350 Intake, Oral 350 350 Physical Exam General Appearance: Alert, Oriented X3 Skin: No Rashes, No Breakdown Skin Temp/Moisture Exam: Warm/Dry Cardiovascular: Regular Rate, Normal S1, Normal S2 Lungs: Clear to Auscultation, Normal Air Movement Abdomen: Normal Bowel Sounds, Soft, No Tenderness Current Medications: Current Medications Sig/Miki Start time Last Medication Dose Route Stop Time Status Admin Acetaminophen 650 MG Q6-PRN PRN 10/09 1230 DCD 10/11 PO 0842 Albuterol Sulfate 3 ML Q4P PRN 10/09 2214 DCD 10/11 INH 0849 Albuterol Sulfate 2 PUF Q4-6 PRN PRN 10/09 2214 DCD INH Amlodipine Besylate 10 MG DAILY 10/09 1825 DCD 10/12 PO 0925 Aspirin 81 MG DAILY 10/09 1100 DCD 10/12 PO 0925 Atorvastatin Calcium 80 MG 1700 10/09 1700 DCD 10/11 PO 1605 Enoxaparin Sodium 40 MG DAILY 10/09 1000 DCD 10/12 SC 0926 Ergocalciferol 50,000 IU QTUES 10/10 0700 DCD 10/10 PO 0516 Gabapentin 300 MG QPM 10/08 2200 DCD 10/11 PO 2117 Insulin Aspart 0 TIDAC/HS 10/09 1700 DCD 10/12 SC 0925 Lisinopril 20 MG DAILY 10/10 1515 DCD 10/12 PO 0926 Tramadol HCl 50 MG Q8P PRN 10/11 1230 DCD 10/12 PO 0928 Assessment/Plan Assessment: Patient is 47 year old morbidly obese female with past medical history significant for hypertension, dyslipidemia, type 2 diabetes, prior TIAs came in with right-sided numbness/weakness concerning for acute ischemic stroke. Patient was admitted on telemetric floor and we will address following issues. Currently she is doing fine and stable to go home with home OT/PT pending echocardiogram once it's done and normal. Problem #1 right-sided upper and lower extremity weakness with right-sided facial droop concerning, now patient has severe headaches with neck pain.- History of multiple TIA in the past * Acute CVA has been ruled out with negative head MRI results. * MRI cervical spine rule out any nerve/spinal cord compression( no evidence of severe spinal or foraminal stenosis noted at any level). * Patient remains stable will discharge the patient home with a follow-up with the PCP as an outpatient. * Continue tramadol as needed for severe headaches. Patient has been evaluated by neurology * Patient passed swallow elevation * Continue aspirin and statins. * Continue physical physical therapy. * We'll discontinue telemetry monitoring Problem #2 history of hypertension Antihypertensives have been resolved Problem #3 history of diabetes We will hold her home dose of Janumet and metformin and we will continue her insulin according to sliding scale. Patient is full code Pharmacological DVT prophylaxis Problem List: 1. Acute CVA (cerebrovascular accident) Pain Ratin Pain Location: Headaches Pain Goal: Remain pain free Pain Plan: prn tylenol and tramadol Tomorrow's Labs & Rationales: No labs as patient was discharged Darin Reyes MD 10/12/17 1234: Attending MD Review Statement Attending Statement Attending MD Statement: examined this patient, discuss w/resident/PA/LITIGATION COORDINATOR, agreed w/resident/PA/LITIGATION COORDINATOR, reviewed EMR data (avail), discussed with nursing, discussed with case mgmt, amended to note Attending Assessment/Plan: Due to concerns that cervical spine compression may be contributing to her right -sided weakness particularly in the upper extremity given her negative CT/MRI of the brain and MRI of the cervical spine was ordered. Unfortunately this procedure could not be done yesterday as the MRI machine was not functioning. Procedure was obtained this morning showed no evidence of severe spinal or foraminal stenosis noted at any level. On examination today patient reports further improvement in her right-sided weakness. We are currently attributing her symptoms to a stroke however symptoms have improved significantly compared to presentation. Patient does not appear to be malingering as she appeared genuinely eager get to be discharged home. She showed no evidence of depression. She reported only mild headaches after hospitalization, does not appear that her symptoms were caused by migraines. At this time she is medically stable to be discharged home. She is being discharged on antiplatelet therapy with aspirin and lipid-lowering therapy. She will follow-up with physical therapy services as an outpatient.
== END 2017-10-12 11:35 | disposition home health service (06) | DRG 45 ==
LOC: ERH 14:09 → 1NO 15:54 → ERHI 15:54 → ENRESERV 10-09 20:52 → ENTRNSPT 10-09 21:13 → 1NO 10-09 21:24 → EDTRNSPT 10-09 21:38 → CMPTRNSPT 10-09 21:39 → 1NO 10-09 21:44 → ENPENDDIS 10-12 10:40 → ENTRNSPT 10-12 11:29 → 1NO 10-12 11:35 → CMPTRNSPT 10-12 11:48
PROVIDERS: Internal Medicine
DX: I63.9 Cerebral infarction, unspecified (principal); G81.91 Hemiplegia, unspecified affecting right dominant side; E11.9 Type 2 diabetes mellitus without complications; Z79.84 Long term (current) use of oral hypoglycemic drugs; E66.01 Morbid (severe) obesity due to excess calories; Z68.41 Body mass index [BMI] 40.0-44.9, adult; F17.200 Nicotine dependence, unspecified, uncomplicated; Z86.73 Personal history of transient ischemic attack (TIA), and cerebral infarction without residual deficits
CPT/HCPCS: 1NSP; 70551; 72141; ERO; 36415; 82436; 93005; 93010; 93306; 96372; 97110-GO; 97116-GO; 97161-GP; 97166-GO; J1650; J3490

== ENCOUNTER 2017-10-25 15:27 | Emergency (ER) | payer OTHER ==
[~2017-10-25] VITALS: Ht 165.1 cm; Wt 117.9 kg
[~2017-10-25 15:27] MED LIST changes: +ASPIRIN81 M4 PO; +JANUMET 50-1,01 EACH PO; +LIPITOR40 M1 PO; +ULTRAM50 M1 PO
--- NOTE | 2017-10-25 17:51 | ED UPPER/LOWER EXTREMITY COMPL ---
History of Present Illness General Chief Complaint: Lower Extremity Problems Stated Complaint: L FOOT SWELLING Source: patient Exam Limitations: no limitations Vital Signs & Intake/Output Vital Signs & Intake/Output Vital Signs Date Time Temp Pulse Resp B/P B/P Pulse O2 O2 Flow FiO2 Mean Ox Delivery Rate 10/25 2102 98.5 70 18 175/80 99 Room Air 10/25 2100 Room Air 10/25 1536 98.3 86 18 182/91 97 Room Air Allergies Coded Allergies: pregabalin (From LYRICA) (SEIZURES 10/25/17) Reconcile Medications Albuterol Sulfate (Proair Hfa) 8.5 GM HFA.AER.AD 2-4 PUF INH Q4-6 PRN PRN shortness of breath Amlodipine Besylate (Norvasc) 10 MG TABLET 1 TAB PO DAILY BP (Reported) Aspirin (Aspirin*) 81 MG TAB.CHEW 81 MG PO DAILY HEART HEALTH Atorvastatin Calcium (Lipitor) 40 MG TABLET 2 TAB PO DAILY stroke take 2 tabs for 2 weeks then 1 tab daily Dicyclomine Hydrochloride (Bentyl) 10 MG CAPSULE 1-2 CAP PO TID abd pain Ergocalciferol (Vitamin D2) (Vitamin D2) 50,000 UNIT CAPSULE 1 CAP PO QTUES VITAMIN SUPPORT (Reported) Gabapentin 300 MG CAPSULE 1 CAP PO QPM SLEEP (Reported) Lisinopril/Hydrochlorothiazide (Lisinopril-Hctz 20-12.5 MG Tab) 20 MG-12.5 MG TABLET 1 TAB PO DAILY HEART (Reported) Metformin HCl (Glucophage) 1,000 MG TABLET 1 TAB PO BID DIABETES (Reported) Naproxen (Naprosyn) 500 MG TABLET 1 TAB PO BID PRN PAIN/INFLAMMATION Ondansetron (Zofran Odt) 4 MG TAB.RAPDIS 1 TAB SL TID nausea Sitagliptin Phos/Metformin HCl (Janumet 50-1,000 MG Tablet) 50 MG-1,000 MG TABLET 50-1,000 MG PO DAILY DIABETES (Reported) Tramadol HCl (Ultram) 50 MG TABLET 1 TAB PO Q6P PRN HEADACHES Triage Note: PT C/O LEFT FOOT STATES SHE WOKE WITH HER FOOT SWOLLEN AND RED FROM HER ANKLE TO HER TOES. PT DOES NOT REMEMBER ANY INJURY STATES SHE WAS SLEEPING ALL DAY YESTERDAY BECAUSE SHE HAS THE FLU. Triage Nurses Notes Reviewed? yes Onset: Gradual Duration: day(s): (1) Timing: no prior history Severity: moderate Severity Numbers: 7 Pain/Injury Location: Left: Foot. Method of Injury: unknown Modifying Factors: Improves With: immobilization. Worsens With: movement. Associated Symptoms: swelling, redness HPI: Patient is a 47-year-old female presenting to the emergency department complaining of left foot pain, redness and swelling that started this morning. Denies any known injury. No numbness or tingling. She denies any fevers or chills nausea or vomiting. Denies any recent abrasions or cuts to the area. Denies taking anything at home to help with pain. (Judi Jain) Past History Travel History Traveled to [place] past 21 day No Medical History Any Pertinent Medical History? see below for history Neurological: NEUROPATHY EENT: NONE Cardiovascular: hypertension Respiratory: NONE Gastrointestinal: NONE Hepatic: NONE Renal: NONE Musculoskeletal: NONE Psychiatric: NONE Endocrine: diabetes Blood Disorders: NONE Cancer(s): NONE DIRECTOR PRINT/Reproductive: NONE History of MRSA: No History of VRE: No History of CDIFF: No Surgical History Surgical History: non-contributory Psychosocial History Who do you live with Son What is your primary language Pashto Tobacco Use: Quit >30 days ago ETOH Use: denies use Illicit Drug Use: denies illicit drug use Family History Hx Contributory? No (Judi Jain) Review of Systems Review of Systems Constitutional: Reports: no symptoms. Comments Review of systems: See HPI, All other systems negative. Constitutional, no chills fever or weight loss HEENT: No visual changes no sore throat no congestion Cardiovascular: No chest pain ,palpitation , orthopnea or ankle swelling Skin, no jaundice no rashes Respiratory: No dyspnea cough sputum or hemoptysis GI: No nausea no vomiting : No dysuria No hematuria Muscle skeletal: no back pain, no neck pain, Neurologic: No numbness no confusion Psych: No stress anxiety or depression,. Heme/endocrine: No bruising no bleeding no polyuria or polydipsia Immunology: No splenectomy or history of AIDS (Judi Jain) Physical Exam Physical Exam General Appearance: well developed/nourished, no apparent distress, alert, awake , comfortable Comments: Well-developed well-nourished person in no acute distress HEENT: Atraumatic, normocephalic Neck: Normal inspection Cardiovascular: Pedal pulses are 2+ bilaterally. Respiratory:No respiratory distress. Extremity: Mild edema noted of the dorsum of the left foot, mild erythema. Tenderness to palpation in this area. NO pain to palpation bilaterallY In the calves. Neuro: Alert oriented x3, motor sensory normal Skin: Mild erythema noted of the dorsum of the left foot approximately 6 cm extending from the distal aspect proximal. Full range motion of left foot without difficulty, mild discomfort. Full range of motion of right lower extremities without difficulties or pain. Psych: Mood and affect is normal, memory and judgment is normal. (Darleen WHITEHEAD,Judi) Progress Differential Diagnosis: contusion, dislocation, DVT, fracture, gout, sprain, tendon injury, SUPERFICIAL THROMBOPHLEBITIS Plan of Care: Orders Procedure Date/time Status LACTIC ACID 10/25 1800 Complete COMPREHENSIVE METABOLIC PANEL 10/25 1800 Complete CBC WITHOUT DIFFERENTIAL 10/25 1800 Complete FingerStick- Glucose 10/25 1750 Active Laboratory Tests 10/25/17 210: Lactic Acid Cancelled 10/25/17 1805: Anion Gap 11, Estimated GFR > 60, BUN/Creatinine Ratio 14.0, Glucose 322 H, Lactic Acid 1.4, Calcium 8.8, Total Bilirubin 0.4, AST 48 H, ALT 49, Alkaline Phosphatase 150 H, Total Protein 6.9, Albumin 3.4 L, Globulin 3.5, Albumin/ Globulin Ratio 1.0 L, CBC w Diff NO MAN DIFF REQ, RBC 5.11, MCV 88.2, MCH 28.5, MCHC 32.3 L, RDW 12.6, MPV 9.3, Gran % 67.1, Lymphocytes % 22.2, Monocytes % 8.2, Eosinophils % 2.1, Basophils % 0.4, Absolute Granulocytes 6.7 H, Absolute Lymphocytes 2.2, Absolute Monocytes 0.8 H, Absolute Eosinophils 0.2, Absolute Basophils 0 Diagnostic Imaging: Viewed by Me: Ultrasound. Discussed w/RAD: Ultrasound. Radiology Impression: PATIENT: SHREYAS PARIS PRESENT AGE: 47 PATIENT ACCOUNT NO: [id number] : 70 LOCATION: [facility] ORDERING PHYSICIAN: Judi WHITEHEAD SERVICE DATE: 10/25/17-1750 EXAM TYPE: US - US-UNILATERAL VENOUS DOPPLER EXAMINATION: US TRIPLEX LOWER EXTREMITY, LEFT CLINICAL INFORMATION: Edema. Pain. COMPARISON: None TECHNIQUE: Color-flow triplex imaging with spectral analysis and compression Doppler were performed on the lower extremity. FINDINGS: Respiratory variation, normal compression and augmented flow are noted throughout the lower extremity. The visualized common femoral vein, superficial femoral vein, profunda femoral vein, popliteal vein and midcalf peroneal and posterior tibial venous segments show no evidence of deep venous thrombosis. There is no Grijalva's cyst. Left foot with swollen. Focal imaging was performed over there is swelling. There is subcutaneous edema. There is a small subcutaneous vein in this area which is noncompressible and demonstrates no vascular flow, thrombosed. IMPRESSION: 1. Normal triplex scan without evidence of deep venous thrombosis involving the lower extremity. 2. Edema of the foot with a small superficial subcutaneous vein at the dorsum of foot that is thrombosed DICTATED BY: Angel Guerra MD DATE/TIME DICTATED:10/25/172043 COOLING TOWER TECHNICIAN:MARLEY DATE/TIME TRANSCRIBED:10/25/172043 CONFIDENTIAL, DO NOT COPY WITHOUT APPROPRIATE AUTHORIZATION. <Electronically signed in Other Vendor System> SIGNED BY: Angel Guerra MD 10/25/172050 Comments: Patient is afebrile, no elevation with blood cell count, lactic acid is negative. Ultrasound revealed superficial thrombophlebitis. No DVT. Patient will be treated symptomatically with warm compresses, anti-inflammatories. Educated on signs and symptoms return. Patient nontoxic. (Judi Jain) Departure Departure Time of Disposition: 2055 Disposition: HOME OR SELF CARE Condition: Stable Clinical Impression Primary Impression: Superficial thrombophlebitis Qualifiers: Superficial thrombophlebitis-Involved body area: lower extremity Laterality: left Qualified Code: I80.02 - Phlebitis and thrombophlebitis of superficial vessels of left lower extremity Secondary Impressions: Hypertension Qualifiers: Hypertension type: essential hypertension Qualified Code: I10 - Essential (primary) hypertension Referrals: Sri Leyva APRN (PCP/Family) Additional Instructions: Follow-up with your primary care physician as scheduled for Monday. Elevate and apply warm compresses to affected area. Take anti-inflammatory to help control pain and inflammation. Return for worsening symptoms or concerns. Follow-up with your primary care physician regarding elevated blood pressure as well. Departure Forms: Customer Survey General Discharge Information Prescriptions: Current Visit Scripts Naproxen (Naprosyn) 1 TAB PO BID PRN PAIN/INFLAMMATION #20 TAB (Judi Jain) PA/MERCHANDISE SUPERVISOR Co-Sign Statement Statement: ED Attending supervision documentation- [] I saw and evaluated the patient. I have also reviewed all the pertinent lab results and diagnostic results. I agree with the findings and the plan of care as documented in the PA's/MERCHANDISE SUPERVISOR's documentation. [X] I have reviewed the ED Record and agree with the PA's/MERCHANDISE SUPERVISOR's documentation. [] Additions or exceptions (if any) to the PAs/MERCHANDISE SUPERVISOR's note and plan are summarized below: [] (Beth JOHNSON,Patrick Caballero)
[2017-10-25 18:50] LABS: ABSOLUTE BASOPHIL COUNT 0 /CUMM (0.0-0.2); ABSOLUTE EOSINOPHIL COUNT 0.2 /CUMM (0.0-0.7); ABSOLUTE GRANULOCYTE CT 6.7 /CUMM (1.4-6.5); ABSOLUTE LYMPH COUNT 2.2 /CUMM (1.2-3.4); ABSOLUTE MONOCYTE COUNT 0.8 /CUMM (0.10-0.60); BASOPHIL % 0.4 % (0.0-2.0); EOSINOPHIL % 2.1 % (0-5); GRANULOCYTE % 67.1 % (42.2-75.2); MEAN CORPUSCULAR HGB 28.5 PG (27.0-31.0); MEAN CORPUSCULAR HGB CONC 32.3 G/DL (33.0-37.0); MEAN CORPUSCULAR VOLUME 88.2 FL (81.0-99.0); MEAN PLATELET VOLUME 9.3 FL (7.4-10.4); PLATELET COUNT 265 /CUMM (130-400); RBC DISTRIBUTION WIDTH 12.6 % (11.5-14.5); RED BLOOD CELL CT 5.11 /CUMM (4.20-5.40); WHITE BLOOD CELL COUNT 10.1 /CUMM (4.8-10.8)
--- NOTE | 2017-10-25 20:51 | ULTRASOUND REPORT ---
EXAMINATION: US TRIPLEX LOWER EXTREMITY, LEFT CLINICAL INFORMATION: Edema. Pain. COMPARISON: None TECHNIQUE: Color-flow triplex imaging with spectral analysis and compression Doppler were performed on the lower extremity. FINDINGS: Respiratory variation, normal compression and augmented flow are noted throughout the lower extremity. The visualized common femoral vein, superficial femoral vein, profunda femoral vein, popliteal vein and midcalf peroneal and posterior tibial venous segments show no evidence of deep venous thrombosis. There is no Grijalva's cyst. Left foot with swollen. Focal imaging was performed over there is swelling. There is subcutaneous edema. There is a small subcutaneous vein in this area which is noncompressible and demonstrates no vascular flow, thrombosed. IMPRESSION: 1. Normal triplex scan without evidence of deep venous thrombosis involving the lower extremity. 2. Edema of the foot with a small superficial subcutaneous vein at the dorsum of foot that is thrombosed
[2017-10-25] MEDS ORDERED: NAPROSYN500 M1 PO (20:57)
[2017-10-25 21:03] VITALS: BP 175/80
== END 2017-10-25 21:04 ==
LOC: ERH 15:27
PROVIDERS: Physician Assistant
DX: I80.02 Phlebitis and thrombophlebitis of superficial vessels of left lower extremity (principal); I10 Essential (primary) hypertension; Z87.891 Personal history of nicotine dependence
CPT/HCPCS: 96374; J1885